=== PATIENT | female | born 1975 ===

== ENCOUNTER 2025-04-30 20:37 | Inpatient (IN) | payer MEDICAID, SELFPAY ==
--- NOTE | 2025-04-30 20:40 | EKG_ITS ---
[facility] (Formerly [facility]) Test Date: 2025-04-30 Pat Name: DUGLAS CHRISTIAN Department: Room: - Gender: Female Networking Engineer: : 1975 Requested By: ED Temporary Provider Order Number: [id number] Reading MD: ED Temporary Provider Measurements Intervals [place] Rate: 76 P: 35 IA: 129 QRS: 26 QRSD: 84 T: 52 QT: 370 QTc: 417 Interpretive Statements SINUS RHYTHM No previous ECG available for comparison /store/S0/[id number]/ecg/[id number].pdf
[2025-04-30 20:53] VITALS: BP 169/96; PULSE 79; RESP 22; TEMP 36.6; O2SAT 95
--- NOTE | 2025-04-30 21:07 | XR_ITS ---
Examination: PA chest single view TECHNIQUE: Upright PA chest single view Date and time: April 30, 2025 2109 hours INDICATIONS: Chest pain and shortness of breath beginning 2 days ago. FINDINGS: Minimal prominence left ventricle No pneumonia or pulmonary edema. Intact osseous structures IMPRESSION: No active disease
--- NOTE | 2025-04-30 21:07 | PD.EDRME ---
Rapid Medical Screening Exam RME Arrival date/time: 04/30/25 20:37 49F with history of HTN presents to ED with 2 days of CP and SOB. Patient denies URI symptoms as well as anxiety. Chief Complaint: Chest Pain Vital signs: Vital Signs Temperature 97.8 F 04/30/25 20:53 Pulse Rate 79 04/30/25 20:53 Respiratory Rate 22 H 04/30/25 20:53 Blood Pressure 169/96 H 04/30/25 20:53 Pulse Oximetry (%) 95 04/30/25 20:53 Oxygen Delivery Method Room Air 04/30/25 20:53
[2025-04-30 21:38] LABS: Basophils # (Auto) 0.1 Thou/mm3 (0.0-0.2); Basophils % (Auto) 1 % (0-2.5); Eosinophils # (Auto) 0.5 Thou/mm3 (0.0-0.5); Eosinophils % (Auto) 3 % (0-10); Hematocrit 37.1 % (36.0-46.0); Hemoglobin 12.0 g/dL (12.0-16.0); Immature Granulocytes Auto 0.06 Thou/mm3 (0.00-0.00); Lymphocytes # (Auto) 2.8 Thou/mm3 (1.0-4.8); Lymphocytes % (Auto) 17 % (10-50); Mean Corpuscular HGB Conc 32.3 g/dl (31.0-37.0); Mean Corpuscular Hemoglobin 28.4 pg (25.0-35.0); Mean Corpuscular Volume 88 fL (80-100); Monocytes # (Auto) 0.9 Thou/mm3 (0.0-0.8); Monocytes % (Auto) 5 % (0-12); Neutrophils # (Auto) 11.9 Thou/mm3 (1.8-7.7); Neutrophils % (Auto) 74 % (37-80); Nucleated Red Blood Cell # 0.00 Thou/mm3 (0.00-0.00); Nucleated Red Blood Cell % 0 /100 WBC (0); Platelet Count 291 Thou/mm3 (140-440); RDW Standard Deviation 43.1 fL (36.4-46.3); Red Blood Count 4.22 Miln/mm3 (4.00-5.20); White Blood Count 16.1 Thou/mm3 (3.6-11.0)
[2025-04-30 21:52] LABS: INR 1.0 (0.9-1.3); Partial Thromboplastin Time 26.9 Seconds (22.0-36.0); Prothrombin Time 10.8 Seconds (9.0-12.2)
[2025-04-30 22:14] LABS: Alanine Aminotransferase 10 U/L (10-49); Albumin, Serum 4.1 gm/dL (3.5-5.0); Albumin/Globulin Ratio 1.5 (1.2-2.2); Alkaline Phosphatase 91 U/L (46-116); Anion Gap 13 (7-16); Aspartate Amino Transferase 13 U/L (0-34); BUN/Creatinine Ratio 12 Ratio (12-20); Bilirubin,Total 0.2 mg/dL (0.3-1.2); Blood Urea Nitrogen 34 mg/dL (9-23); Calcium 9.0 mg/dL (8.3-10.6); Calcium (Corrected) 9.0 mg/dL (8.5-10.1); Carbon Dioxide 18.8 mMol/L (20.0-31.0); Chloride 107 mMol/L (98-107); Creatinine (Component) 2.9 mg/dL (0.6-1.3); Estimated Creatinine Clearance 24.0 mL/min (>60); Globulin 2.7 gm/dL (2.3-3.5); Glucose 115 mg/dL (74-106); Osmolality,Calculated 286 (275-295); Potassium 4.4 mMol/L (3.4-5.1); Sodium 139 mMol/L (136-145); Total Protein 6.8 gm/dL (5.7-8.2); eGFR 19 See Note
[2025-04-30 22:15] LABS: B-Type Natriuretic Peptide 63 pg/mL (0-100); Troponin I 0.077 ng/mL (0.0-0.045)
[2025-04-30 22:37] VITALS: BP 203/103; PULSE 67; RESP 18; TEMP 36.6; O2SAT 96
[2025-05-01] VITALS (14 sets, daily range): BP systolic 142–231; BP diastolic 86–145; PULSE 65–88; RESP 16–19; TEMP 36.2–36.7; O2SAT 94–100; BMI 43.2
--- NOTE | 2025-05-01 00:02 | EDNOTE_ITS ---
ED Chest Pain RME/HPI General Chief Complaint: Chest Pain Stated Complaint: CHEST PAIN Arrival date/time: 04/30/25 20:37 RME / HPI RME / HPI narrative: 04/30/25 20:37 49F with history of HTN presents to ED with 2 days of CP and SOB. Patient denies URI symptoms as well as anxiety. Dr. Coronado?s Main ED Evaluation: 49yo female presenting with left upper parasternal tightness ~24 hours that is waxing and waning. No definite exertional component. Associated shortness of breath. Denies N/V, lightheadedness, or near syncope. Cardiac risk factors: HTN (untreated) and family history. No DM or tobacco use. Unknown cholesterol status. Related Data Previous Rx's ?Medication ?Instructions ?Recorded cyclobenzaprine 10 mg tablet 10 mg PO TID #20 tabs 02/13 Allergies Allergy/AdvReac Type Severity Reaction Status Date / Time No Known Allergies Allergy Verified 04/30/25 20:38 Review of Systems Review of Systems Systems Reviewed: All systems reviewed, normal except as documented Past Medical History Social History SMOKING STATUS: Never smoker ED Exam Narrative Physical exam: GENERAL APPEARANCE: alert and oriented x 4, apprehensive, mildly obese, well- developed, well-nourished, no acute distress VITALS: All vitals were reviewed and the pulse ox is % on room air, which is normal according to my interpretation. Markedly hypertensive. HEENT: Normocephalic, atraumatic; pupils equal, round, reactive to light; EOMI; mucous membranes pink, moist; oropharynx clear NECK: Supple LUNGS: CTABL; no wheezes, no rales, no rhonchi HEART: Regular rate, regular rhythm; normal S1, S2; no murmurs ABDOMEN: non distended; normal BS; soft, no tenderness, no guarding, no re bound; no masses, no organomegaly, no hernia BACK: no CVA tenderness EXTREMITIES: atraumatic; no edema NEUROLOGIC: awake; alert and oriented x4; cranial nerves II-XII grossly intact; no focal sensory or motor deficits PSYCHIATRIC: appropriate mood and affect SKIN: warm, dry, normal color; no rashes Course Quality Measures none Orders Category Date Time Status Patient Condition Routine Admission 05/01/25 07:52 Ordered EKG (ED ONLY) *Do not use* NOW Care 04/30/25 20:40 Completed Insert IV NOW Care 04/30/25 22:41 Active Notify provider NEEDED Care 05/01/25 07:52 Active EKG (ED Only) Stat Exams 04/30/25 20:40 Draft XR chest 1V portable Stat Exams 04/30/25 21:07 Completed B-Type Natriuretic Peptide Stat Lab 04/30/25 21:30 Completed CBC Stat Lab 04/30/25 21:30 Completed Comprehensive Metabolic Panel Stat Lab 04/30/25 21:30 Completed Creatine Kinase Stat Lab 05/01/25 05:00 Completed Partial Thromboplastin Time Stat Lab 04/30/25 21:30 Completed Prothrombin Time with INR Stat Lab 04/30/25 21:30 Completed Troponin I Stat Lab 04/30/25 21:30 Completed Troponin I Stat Lab 05/01/25 00:22 Completed Troponin I Stat Lab 05/01/25 05:00 Completed Aspirin Med 04/30/25 21:07 Discontinued 325 mg PO X1 ONE Diazepam Inj [Valium Inj] Med 05/01/25 00:09 Discontinued 2.5 mg IVP X1 ONE Enalaprilat Inj [Vasotec Inj] Med 05/01/25 00:10 Discontinued 2.5 mg IVP X1 ONE Nitroglycerin Oint 2% [Nitro-paste Oint 2%] Med 05/01/25 00:09 Discontinued 1 inch TOP X1 ONE Nitroglycerin [Nitrostat 1/150] Med 04/30/25 22:41 Discontinued 0.4 mg SL Q5MIN PRN amLODIPine BESYLATE [Norvasc] Med 05/01/25 01:34 Discontinued 5 mg PO X1 ONE Code Status Routine Oth 05/01/25 07:52 Ordered Vital Signs Vital signs: Vital Signs Temperature 97.8 F 04/30/25 20:53 Pulse Rate 79 04/30/25 20:53 Respiratory Rate 22 H 04/30/25 20:53 Blood Pressure 169/96 H 04/30/25 20:53 Pulse Oximetry (%) 95 04/30/25 20:53 Oxygen Delivery Method Room Air 04/30/25 20:53 Chest Pain MDM Narrative MDM Narrative:: Scribe Attestation: 05/01/25 - I, Caroline Isreal, am scribing for and in the presence of Dr. Coronado. 49yo female presenting with left upper parasternal tightness ~24 hours that is waxing and waning. No definite exertional component. Please see PE findings. Lab markers demonstrate elevated WBC count 16.1, normal Hgb and platelet counts, significant increase in patient's creatinine to 2.9, reduced eGFR from 35 to 19. Patient placed on audio engineer. Serial troponin analysis conducted . Treated with nitrates, IV antihypertensives, and low dose benzodiazepines with gradual reduction in blood pressure. Although there was initial slight increase in troponin, it is currently downtrending. Dx: malignant HTN, acute on chronic renal insufficiency. Admit to telemetry. Patient data External records reviewed:: [facility] previous records (Per chart review, patient was seen here on 10/28/23 for muscle tension pain.) Clinical information provided by:: patient Social determinants that could affect healthcare access:: none Patient has the following chronic illnesses:: HTN How is presenting disease/condition affected by chronic disease/condition?: exacerbated by Evaluation data The following diagnostics were reviewed and interpreted by me:: lab results, radiology exam(s) and EKG tracing(s) Lab and/or radiology exams considered but not ordered:: none Interpretation Summary: EKG done at 2053, NSR, rate of 76, normal intervals, normal axis, no ST segment changes, according to my interpretation. [facility] Report Signed Patient: DUGLAS CHRISTIAN. Record#: [id number] Birthdate: 1975 Age/Sex: 49 / F Location: [facility], [place] Attending Dr: Ordering Physician: Armani Ayon PA-C Date of Service: 04/30/25 Procedure(s): XR chest 1V portable Accession Number(s): [id number] cc: Santi Torres MD; NO PRIMARY/FAMILY,PHYSICIAN; Armani Ayon PA-C~ Examination: PA chest single view TECHNIQUE: Upright PA chest single view Date and time: April 30, 2025 2109 hours INDICATIONS: Chest pain and shortness of breath beginning 2 days ago. FINDINGS: Minimal prominence left ventricle No pneumonia or pulmonary edema. Intact osseous structures IMPRESSION: No active disease Dictated By: Santi Torres MD Signed By: <Electronically signed by Santi Torres MD in OV> 04/30/25 6511 Medications / Prescriptions Medications or Prescriptions considered but not ordered:: none Medication administrations:: Medication Administration History Acetaminophen (Acetaminophen 325 Mg Tablet) 650 mg PO Q4HR PRN PRN Reason: Fever >100 or pain 1-3 Stop: 05/31/25 15:44 Last Admin: 05/01/25 15:49 Dose: 650 mg Documented By: IA Amlodipine Besylate (Amlodipine Besylate 5 Mg Tablet) 5 mg PO QDAY [facility] Stop: 06/01/25 08:59 Citric Acid/Sodium Citrate (Citric Acid/Sodium Citr 15 Ml Udc (Bicitra)) 30 ml PO BID LASHAE Stop: 05/31/25 15:14 Last Admin: 05/01/25 15:22 Dose: 30 ml Documented By: IA Hydralazine HCl (Hydralazine Inj 20 Mg/Ml Vial) 10 mg IVP Q1H PRN PRN Reason: SBP>180mmHg Hydralazine HCl (Hydralazine Hcl 25 Mg Tablet) 25 mg PO BID [facility] Stop: 05/31/25 16:09 Last Admin: 05/01/25 16:17 Dose: 25 mg Documented By: IA Pharmacy Consult (Pharmacy Renal Dose Adjustment 1 Ea) 1 each XX PRN PRN PRN Reason: CONSULT Stop: 05/31/25 12:39 Discontinued Medications Amlodipine Besylate (Amlodipine Besylate 5 Mg Tablet) 5 mg PO X1 ONE Stop: 05/01/25 01:35 Last Admin: 05/01/25 01:51 Dose: 5 mg Documented By: DINA Aspirin (Aspirin 325 Mg Tablet) 325 mg PO X1 ONE Stop: 04/30/25 21:08 Last Admin: 04/30/25 21:24 Dose: 325 mg Documented By: BILL Diazepam (Diazepam Inj 5 Mg/Ml Vial 2 Ml) 2.5 mg IVP X1 ONE Stop: 05/01/25 00:10 Last Admin: 05/01/25 00:59 Dose: 2.5 mg Documented By: DINA Enalaprilat (Enalaprilat Inj 1.25 Mg/Ml Vial) 2.5 mg IVP X1 ONE Stop: 05/01/25 00:11 Last Admin: 05/01/25 01:06 Dose: 2.5 mg Documented By: DINA Hydralazine HCl (Hydralazine Hcl 25 Mg Tablet) 25 mg PO BID LASHAE Stop: 05/31/25 20:59 Acetaminophen (Ofirmev Inj) 1,000 mg in 100 mls @ 250 mls/hr IV X1 ONE Stop: 05/01/25 10:10 Last Admin: 05/01/25 11:04 Dose: 250 mls/hr Documented By: IA Nitroglycerin (Nitroglycerin 0.4 Mg Subl Btl #25) 0.4 mg SL Q5MIN PRN PRN Reason: CHEST PAIN Last Admin: 05/01/25 00:38 Dose: 0.4 mg Documented By: DINA Nitroglycerin (Nitroglycerin Oint 2% 1 Inch Packet) 1 inch TOP X1 ONE Stop: 05/01/25 00:10 Last Admin: 05/01/25 01:02 Dose: 1 inch Documented By: DINA see above Consultations Consultation(s) initiated? (list below): Yes Consultation #1 (Physician, Specialty, Details): Discussed case with the resident physician, attending Dr. Astudillo from Hospitalist service regarding admission. Discussed patients ED course, exam findings, labs, and radiology results. The Hospitalist agrees to accept the patient for admission. Time: 06:01 Diagnosis Chest Pain Differential Diagnosis: atypical chest pain, st elevation myocardial infarction, costochondritis, chest pain and other (NSTEMI, ACS) Most likely diagnosis given after review of the tests above:: see clinical impression below Admission Indicated Admission indicated?: indicated Admission Request Was there a request for admission?: Yes Admission Attestation Admission request attestation: Discussed case with [] from Hospitalist service regarding admission. Discussed patients ED course, exam findings, labs, and radiology results. The Hospitalist [agrees,declines] to accept the patient for admission. Disposition Plan Disposition Plan: Admit Critical Care Time Critical Care Time Critical Care Time: Yes Total Critical Care Time (min.): 45 Attestation: The high probability of sudden, clinically significant deterioration in the patient?s condition required the highest level of my preparedness to intervene urgently. The services I provided to this patient were to treat and/or prevent clinically significant deterioration. Services included the following: chart data review, reviewing nursing notes and/or old charts, documentation time, data management consultant collaboration regarding findings and treatment options, medication orders and management, direct patient care, vital sign assessments and ordering, interpreting and reviewing diagnostic studies and lab tests. Aggregate critical care time includes only time during which I was engaged in work directly related to the patient?s care, as described above, whether at bedside or elsewhere in the Emergency Department. It did not include time spent performing other reported procedures or the services of residents, students, nurses or physician assistants. Discharge Plan Plan Patient Disposition: Admit Acute Care w/in Hospital Problem List Clinical Impression: Malignant hypertension, Acute on chronic renal insufficiency
[2025-05-01] MEDS: NITROGLYCERIN 0.4 MG SUBL BTL #25 SL (00:38)
[2025-05-01 00:51] LABS: Troponin I 0.081 ng/mL (0.0-0.045)
[2025-05-01] MEDS: DIAZEPAM INJ 5 MG/ML VIAL 2 ML 2.5 MG IVP (00:59)
[2025-05-01] MEDS: NITROGLYCERIN OINT 2% 1 INCH PACKET TOP (01:02)
[2025-05-01] MEDS: ENALAPRILAT INJ 1.25 MG/ML VIAL 2.5 MG IVP (01:06)
[2025-05-01 05:37] LABS: Troponin I 0.065 ng/mL (0.0-0.045)
--- NOTE | 2025-05-01 07:15 | PC.NURSE ---
in to assess pt. pt resting quietly at this time. denies chest pain. family at bedside. call light placed within reach. plan to admit.
--- NOTE | 2025-05-01 07:23 | PC.NURSE ---
Per provider B/p to be addressed by hospitalist
--- NOTE | 2025-05-01 10:54 | XR_ITS ---
Examination: Retroperitoneal ultrasound, complete Technique: Multiple high resolution grayscale images of the retroperitoneum obtained, including kidneys and bladder. Exam date and time:May 01, 2025, 1235 hours INDICATIONS: Acute renal insufficiency on left examination this week FINDINGS: Right kidney 9.1 cm renal cortex 1.3 cm Left kidney 8.4 cm renal cortex 1.8 cm Mild renal parenchymal scar formation. No hydronephrosis No bladder mass or bladder calculi, bladder prevoid volume 202 cc postvoid volume 0 cc IMPRESSION: Small kidneys with bilateral renal cortical thinning. Mild bilateral renal scar formation
[2025-05-01] MEDS: ACETAMINOPHEN IVPB 1,000 MG/100 ML VIAL 250 MG IV (11:04)
[2025-05-01 13:24] LABS: Creatine Kinase 61 U/L (34-171)
--- NOTE | 2025-05-01 14:23 | ESCONSULT_ITS ---
<Statement entered by Estefanía Bell MD - 05/02/25 18:47> I personally evaluated this patient examined who clearly has atypical chest pain known history of hypertension CKD who has had right-sided chest pain lasted few seconds nonradiating clearly reproducible with chest wall tenderness appears to be costochondritis she is feeling a lot better now no evidence of myocardial infarction enzymes are negative patient can be discharged home with further evaluation as an outpatient. Evaluated patient with resident physician PGY 2 agree with the treatment plan recommendation all essential components of the consultation report is reviewed personally by me HPI Data of Consult Requesting Physician: Anders Galindo DO Admitting Provider: Anders Galindo DO Attending Provider: Anders Galindo DO Primary Care Provider: Physician No Primary/Family Consult Narrative History of present illness: This is a 49-year-old female with a history of poorly controlled hypertension and chronic kidney disease presented to the ED with acute chest pain lasting for one day. The pain was centrally located, non-radiating, and worsened with deep breaths. The patient had no prior similar episodes, denied physical activity- related pain, and reported non-compliance with hypertension medications and lack of follow-up for CKD. On presentation, her blood pressure was initially 169/96 but later spiked to 230/145, and lab work revealed elevated troponin and serum creatinine levels, indicating possible ANGEL LUIS. The troponin levels trended from 0.077 to 0.081, and finally 0.065, without any ischemic changes on the EKG or significant findings on chest imaging. The patient was diagnosed with hypertensive emergency and ANGEL LUIS on CKD, likely exacerbated by poorly managed hypertension and lack of nephrology follow-up. Her renal ultrasound revealed bilateral cortical thinning without obstruction. For management, she was started on hydralazine and amlodipine for blood pressure control and given IV hydralazine for SBP >180 mmHg. Strict fluid monitoring and nephrology consultation were initiated, and the patient was counseled on the importance of outpatient follow-up for both her CKD and hypertension. Leukocytosis (WBC 16.1) was noted but there were no signs of infection, and daily CBC monitoring was planned. The patient was also given nitroglycerin paste and enalaprilat IV during her ED course for chest pain and blood pressure management. On evaluation, she reports ported nonexertional chest pain, not related to activities, appears to be triggered by deep inhalation, rated at mild intensity. Denied palpitations, lightheadedness, dizziness, syncope or presyncope. On exam, she reported reproducible chest pain that appears epigastric, but more on the right chest. At the time of evaluation, she denied shortness of breath. Given her presentation as described above, she has atypical chest pain that is reproducible on exam, with low suspicions for acute coronary syndrome at this time. cc:: cc: Anders Galindo, Review of Systems Review of Systems Systems Reviewed: All systems reviewed, normal except as documented Exam Vital Signs Temp Pulse Resp BP Pulse Ox O2 Del Method 97.9 F 67 18 183/94 H 96 Room Air 05/01/25 12:00 05/01/25 12:00 05/01/25 12:00 05/01/25 12:00 05/01/25 12:05/01/25 12:00 Narrative Exam GENERAL * Obese female, well-nourished, on room air, NAD HEENT * NCAT.?GREGORY. Oral mucosa is moist. Patent Nares NECK * Supple, nontender, no JVD. CHEST * RRR, no m/g/r * CTAB, no w/r/r, symmetrical expansion. ABDOMEN * Soft, flat, nontender. No guarding/rebound tenderness/masses. * Bowel sounds presents EXTREMITIES * No edema/cyanosis.? SKIN * Warm and dry, no jaundice/rashes. NEUROMUSCULAR * No lumbar or midline, no CVA, no paraspinal muscle spasm or tenderness. * Moves all 4 extremities well, with full ROM and good CSM. * KRISHNA x4, CN II-XII grossly intact. * No focal neurologic deficits. PSYCHIATRY * Normal mood and affect, cooperative, no SI or HI or hallucinations. Results Labs 04/30/25 21:30 04/30/25 21:30 Labs: Short CBC 04/30/25 Range/Units 21:30 WBC 16.1 H (3.6-11.0) Thou/mm3 Hgb 12.0 (12.0-16.0) g/dL Hct 37.1 (36.0-46.0) % Plt Count 291 (140-440) Thou/mm3 BMP 04/30/25 21:30 Sodium 139 Potassium 4.4 Chloride 107 Carbon Dioxide 18.8 L BUN 34 H Creatinine 2.9 H Glucose 115 H Calcium 9.0 Cardiac Enzymes 04/30/25 05/01/25 05/01/25 Range/Units 21:30 00:22 05:00 Total Creatine Kinase 61 (34-171) U/L Troponin I 0.077 H* 0.081 H* 0.065 H* (0.0-0.045) ng/mL Liver Function 04/30/25 Range/Units 21:30 Total Bilirubin 0.2 L (0.3-1.2) mg/dL AST 13 (0-34) U/L ALT 10 (10-49) U/L Alkaline Phosphatase 91 (46-116) U/L Albumin 4.1 (3.5-5.0) gm/dL Quality Measures Quality Measures none Medications Home Medications and Allergies Allergies Allergy/AdvReac Type Severity Reaction Status Date / Time No Known Allergies Allergy Verified 04/30/25 20:38 Visit Medications Amlodipine Besylate (Amlodipine Besylate 5 Mg Tablet) 5 mg PO QDAY LASHAE Stop: 06/01/25 08:59 Nitroglycerin (Nitroglycerin 0.4 Mg Subl Btl #25) 0.4 mg SL Q5MIN PRN PRN Reason: CHEST PAIN Last Admin: 05/01/25 00:38 Dose: 0.4 mg Pharmacy Consult (Pharmacy Renal Dose Adjustment 1 Ea) 1 each XX PRN PRN PRN Reason: CONSULT Stop: 05/31/25 12:39 Discontinued Medications Amlodipine Besylate (Amlodipine Besylate 5 Mg Tablet) 5 mg PO X1 ONE Stop: 05/01/25 01:35 Last Admin: 05/01/25 01:51 Dose: 5 mg Aspirin (Aspirin 325 Mg Tablet) 325 mg PO X1 ONE Stop: 04/30/25 21:08 Last Admin: 04/30/25 21:24 Dose: 325 mg Diazepam (Diazepam Inj 5 Mg/Ml Vial 2 Ml) 2.5 mg IVP X1 ONE Stop: 05/01/25 00:10 Last Admin: 05/01/25 00:59 Dose: 2.5 mg Enalaprilat (Enalaprilat Inj 1.25 Mg/Ml Vial) 2.5 mg IVP X1 ONE Stop: 05/01/25 00:11 Last Admin: 05/01/25 01:06 Dose: 2.5 mg Acetaminophen (Ofirmev Inj) 1,000 mg in 100 mls @ 250 mls/hr IV X1 ONE Stop: 05/01/25 10:10 Last Admin: 05/01/25 11:04 Dose: 250 mls/hr Nitroglycerin (Nitroglycerin Oint 2% 1 Inch Packet) 1 inch TOP X1 ONE Stop: 05/01/25 00:10 Last Admin: 05/01/25 01:02 Dose: 1 inch Assessment & Plan Plan This is a 49-year-old female with a history of poorly controlled hypertension and chronic kidney disease presented to the ED with acute chest pain lasting for one day. Workup revealed hypertension and labs revealed elevated troponin and serum creatinine levels, indicating possible ANGEL LUIS. NSTEMI likely type II Hypertensive emergency ANGEL LUIS on CKD She has known history of poorly controlled hypertension in setting of chronic kidney disease. Admission BP 116/96, HR 79 with endorgan damage i.e. ANGEL LUIS on CKD and elevated troponin peaked at 0.081. Renal ultrasound revealed bladder atrophic kidneys consistent with CKD. CXR showed no active disease. EKG sinus rhythm without acute ST changes. Additionally, she complained of chest pain on admission which appears to be epigastric, but more so involving the right side of the chest, reducible on exam, likely costochondritis. Overall, her presentation described above is consistent with atypical chest pain, likely musculoskeletal. As such, no indication for cardiovascular intervention. Will follow-up in office for possibly additional workup if symptoms persist. For now, recommended treating hypertension and ANGEL LUIS. Case was discussed with attending physician, Dr. Bell. Gil Church, PGY II This document was transcribed using voice recognition technology. Minor inaccuracies may be present.
--- NOTE | 2025-05-01 15:02 | PD.RESHP ---
Documentation for date of: 05/01/25 HPI History of Present Illness Chief complaint: Chest pain for one day History of present illness: HPI: A 49-year-old female patient with past medical history of hypertension poorly controlled, chronic kidney disease with no follow-up, presented to the ED due to acute onset of chest pain for 1 day. Reported that the chest pain centrally located with no radiation. Mentions that it increases with deep breath. When she asks to localize the pain she pointed to the sternal area midpoint. She mentions that the pain is not constant however it changes with time. Denied any relation with physical activity. She denied any orthopnea, lower extremity swelling, palpitation, dizziness or fever. Denied any similar conditions in the past. On questioning it appeared that the patient was not compliant with her meds as she mentions she has never taken any medication for her hypertension. She mentions that she is aware of her chronic kidney disease however she has never followed up with a animal husbandry teacher. Home medications: None ED course: At the ED patient was found to have blood pressure of 169/96 however it increased to 230/145, pulse rate was 79, respiratory rate of 22, WBC was 16.1, however no fever or chills, her CMP showed carbon oxide of 18.8, BUN 34, serum creatinine 2.9 last serum creatinine was 1.8 and 2023. Patient was given nitroglycerin paste and was given enalaprilat IV by the ED team. PMH:as above Allergies: NKDA Review of Systems Review of Systems Systems Reviewed: All systems reviewed, normal except as documented Exam Vital Signs Temp Pulse Resp BP Pulse Ox O2 Del Method 97.9 F 67 18 183/94 H 96 Room Air 05/01/25 12:05/01/25 12:05/01/25 12:05/01/25 12:05/01/25 12:05/01/25 12:00 Narrative Exam GEN: AOx3, able to speak full sentences HEENT: NC/AC, PERRLA, oral mucosa moist, neck supple CVS: RRR, S1-S2 present, no murmurs appreciated RESP: CTAB GI: soft,non distended, non tender, NBS MSK: able to move all 4 limbs, trace lower extremity edema SKIN: warm and dry MOLD CARPENTER: CN II-XII and Sensation grossly intact. Results: Labs 04/30/25 21:30 04/30/25 21:30 Labs: Short CBC 04/30/25 Range/Units 21:30 WBC 16.1 H (3.6-11.0) Thou/mm3 Hgb 12.0 (12.0-16.0) g/dL Hct 37.1 (36.0-46.0) % Plt Count 291 (140-440) Thou/mm3 BMP 04/30/25 21:30 Sodium 139 Potassium 4.4 Chloride 107 Carbon Dioxide 18.8 L BUN 34 H Creatinine 2.9 H Glucose 115 H Calcium 9.0 Cardiac Enzymes 04/30/25 05/01/25 05/01/25 Range/Units 21:30 00:22 05:00 Total Creatine Kinase 61 (34-171) U/L Troponin I 0.077 H* 0.081 H* 0.065 H* (0.0-0.045) ng/mL Liver Function 04/30/25 Range/Units 21:30 Total Bilirubin 0.2 L (0.3-1.2) mg/dL AST 13 (0-34) U/L ALT 10 (10-49) U/L Alkaline Phosphatase 91 (46-116) U/L Albumin 4.1 (3.5-5.0) gm/dL Quality Measures Quality Measures none Medications Home Medications and Allergies Allergies Allergy/AdvReac Type Severity Reaction Status Date / Time No Known Allergies Allergy Verified 04/30/25 20:38 Visit Medications Amlodipine Besylate (Amlodipine Besylate 5 Mg Tablet) 5 mg PO QDAY LASHAE Stop: 06/01/25 08:59 Citric Acid/Sodium Citrate (Citric Acid/Sodium Citr 15 Ml Udc (Bicitra)) 30 ml PO BID LASHAE Stop: 05/31/25 15:14 Nitroglycerin (Nitroglycerin 0.4 Mg Subl Btl #25) 0.4 mg SL Q5MIN PRN PRN Reason: CHEST PAIN Last Admin: 05/01/25 00:38 Dose: 0.4 mg Pharmacy Consult (Pharmacy Renal Dose Adjustment 1 Ea) 1 each XX PRN PRN PRN Reason: CONSULT Stop: 05/31/25 12:39 Discontinued Medications Amlodipine Besylate (Amlodipine Besylate 5 Mg Tablet) 5 mg PO X1 ONE Stop: 05/01/25 01:35 Last Admin: 05/01/25 01:51 Dose: 5 mg Aspirin (Aspirin 325 Mg Tablet) 325 mg PO X1 ONE Stop: 04/30/25 21:08 Last Admin: 04/30/25 21:24 Dose: 325 mg Diazepam (Diazepam Inj 5 Mg/Ml Vial 2 Ml) 2.5 mg IVP X1 ONE Stop: 05/01/25 00:10 Last Admin: 05/01/25 00:59 Dose: 2.5 mg Enalaprilat (Enalaprilat Inj 1.25 Mg/Ml Vial) 2.5 mg IVP X1 ONE Stop: 05/01/25 00:11 Last Admin: 05/01/25 01:06 Dose: 2.5 mg Acetaminophen (Ofirmev Inj) 1,000 mg in 100 mls @ 250 mls/hr IV X1 ONE Stop: 05/01/25 10:10 Last Admin: 05/01/25 11:04 Dose: 250 mls/hr Nitroglycerin (Nitroglycerin Oint 2% 1 Inch Packet) 1 inch TOP X1 ONE Stop: 05/01/25 00:10 Last Admin: 05/01/25 01:02 Dose: 1 inch Assessment & Plan Plan Summary: A 49-year-old female patient with past medical history of hypertension poorly controlled, chronic kidney disease with no follow-up, presented to the ED due to acute onset of chest pain for 1 day. Reported that the chest pain centrally located with no radiation. Patient was found to have elevated troponins and elevated serum creatinine admitted for non-STEMI workup and ANGEL LUIS treatment. #Non-STEMI type I versus type II Patient presented with centrally located chest pain, even that the patient pain was reproducible, we noticed that her serum troponin was elevated went up from 0.077, to 0.081, started to downtrend to 0.065 EKG did not show any ischemic changes. Chest x-ray was negative for any pneumothorax or pulmonary cause of chest pain. Patient denied any symptoms physical activity. 05/[address] Bell was consulted, recommended no cardiac intervention at this time. As the pain is reducible. Patient can be discharged from his standpoint. Plan ? Stop trending troponin ? Consult cardiology, recommendations appreciated ?Strict ins and outs #Hypertension emergency #ANGEL LUIS on CKD Patient is known case of hypertension however has not taken any blood pressure medications has not following up with her PCP. She is also known case of CKD however she does not see a animal husbandry teacher. On presentation her max blood pressure was 230/145 Renal ultrasound was performed which showed bilateral thinning of the cortical wall. No obstructions. Plan ? Urine electrolyte, serum creatinine kinase ? Start the patient on hydralazine p.o. 25 mg twice daily ? Start the patient amlodipine 5 mg p.o. daily ? Strict in and out ? Nephrology consultation to Dr. Bose was sent, pending recommendations ? Hydralazine 10 mg IV every hour for SBP more than 180 mmHg, max of 3 doses. ? Patient counseling regarding her ANGEL LUIS and CKD and the need to follow-up with animal husbandry teacher in outpatient #Leukocytosis WBC found to be 16.1, no signs of infection, no fever, no focal elevation. Plan ? Continue to monitor CBC daily Hospital Maintenance: FEN: Renal diet DVT ppx: Heparin subcu GI ppx: Protonix IV lines: PIV Preston: None Code status: Full code Dispo: Telemetry - Patient's plan and care discussed with my attending, Dr. Josie Garcias MD Internal Medicine PGY-3 Attending Provider Attestation/Addendum I have discussed and was present for the essential components of the history, physical examination, diagnosis, and treatment plan with the resident. I agree with the patient's care as documented by the resident and amended herein by me. Julien Galindo DO. Although this document has been carefully reviewed, there may still be some phonetic and other typographical errors. These errors are purely grammatical due to imperfections in the software program and should not be construed in any way to compromise the substance of the patient's medical care during this visit.
[2025-05-01] MEDS: CITRIC ACID/SODIUM CITR 15 ML UDC (BICITRA) 30 ML PO (15:22)
[2025-05-01] MEDS: ACETAMINOPHEN 325 MG TABLET 650 MG PO (15:49)
[2025-05-01 19:35] LABS: Phosphorous 4.3 mg/dL (2.4-5.1)
[2025-05-02] VITALS (14 sets, daily range): BP systolic 141–183; BP diastolic 79–103; PULSE 66–113; RESP 17–20; TEMP 36.1–36.7; O2SAT 95–99
[2025-05-02 03:19] LABS: Potassium,Urine Random 18 mMol/L (12-62)
[2025-05-02 03:26] LABS: Creatinine,Random Urine 36 mg/dL (30-125); Protein Total, Random Urine 92 mg/dL (1-14); Sodium,Urine Random 94.0 mMol/L (20.0-110.0)
[2025-05-02] MEDS: hydrALAZINE INJ 20 MG/ML VIAL 10 MG IVP (03:38)
[2025-05-02 06:17] LABS: Basophils # (Auto) 0.1 Thou/mm3 (0.0-0.2); Basophils % (Auto) 1 % (0-2.5); Eosinophils # (Auto) 0.4 Thou/mm3 (0.0-0.5); Eosinophils % (Auto) 3 % (0-10); Hematocrit 37.1 % (36.0-46.0); Hemoglobin 12.1 g/dL (12.0-16.0); Immature Granulocytes Auto 0.05 Thou/mm3 (0.00-0.00); Lymphocytes # (Auto) 1.9 Thou/mm3 (1.0-4.8); Lymphocytes % (Auto) 14 % (10-50); Mean Corpuscular HGB Conc 32.6 g/dl (31.0-37.0); Mean Corpuscular Hemoglobin 28.6 pg (25.0-35.0); Mean Corpuscular Volume 88 fL (80-100); Monocytes # (Auto) 0.7 Thou/mm3 (0.0-0.8); Monocytes % (Auto) 5 % (0-12); Neutrophils # (Auto) 10.7 Thou/mm3 (1.8-7.7); Neutrophils % (Auto) 77 % (37-80); Nucleated Red Blood Cell # 0.00 Thou/mm3 (0.00-0.00); Nucleated Red Blood Cell % 0 /100 WBC (0); Platelet Count 267 Thou/mm3 (140-440); RDW Standard Deviation 42.5 fL (36.4-46.3); Red Blood Count 4.23 Miln/mm3 (4.00-5.20); White Blood Count 13.8 Thou/mm3 (3.6-11.0)
[2025-05-02 06:43] LABS: Parathyroid Hormone Intact 177.4 pg/ml (18.5-88.0)
[2025-05-02 07:00] LABS: Alanine Aminotransferase 9 U/L (10-49); Albumin, Serum 4.0 gm/dL (3.5-5.0); Albumin/Globulin Ratio 1.6 (1.2-2.2); Alkaline Phosphatase 89 U/L (46-116); Anion Gap 13 (7-16); Aspartate Amino Transferase 13 U/L (0-34); BUN/Creatinine Ratio 13 Ratio (12-20); Bilirubin,Total 0.4 mg/dL (0.3-1.2); Blood Urea Nitrogen 32 mg/dL (9-23); Calcium 9.0 mg/dL (8.3-10.6); Calcium (Corrected) 9.0 mg/dL (8.5-10.1); Carbon Dioxide 21.1 mMol/L (20.0-31.0); Chloride 104 mMol/L (98-107); Creatinine (Component) 2.4 mg/dL (0.6-1.3); Estimated Creatinine Clearance 28.4 mL/min (>60); Globulin 2.5 gm/dL (2.3-3.5); Glucose 92 mg/dL (74-106); Magnesium 1.8 mg/dL (1.6-2.6); Osmolality,Calculated 282 (275-295); Phosphorous 4.4 mg/dL (2.4-5.1); Potassium 4.7 mMol/L (3.4-5.1); Sodium 138 mMol/L (136-145); Total Protein 6.5 gm/dL (5.7-8.2); Uric Acid 9.1 mg/dL (3.1-7.8); eGFR 24 See Note
--- NOTE | 2025-05-02 08:30 | ESCONSULT_ITS ---
[facility] Data of Consult Consult date: 05/02/25 Requesting Physician: Anders Galindo DO Admitting Provider: Anders Galindo DO Attending Provider: Anders Galindo DO Primary Care Provider: Physician No Primary/Family Consult Narrative Reason for consult: ANGEL LUIS History of present illness: Ms Salas is a 49 yo woman with PMH of poorly controlled HTN (not taking medications), CKD (not followed by a sr. director) who presented to the ED with acute onset non radiating chest pain in the center of the chest, worse with inspiration, not associated with exertion, no orthopnea, no LE edema, no palpitations. Pt reports having increased stress recently, since she has recently from her . She does not have any children. She states that she had been diagnosed with HTN about 1-2 years ago but was not taking any medications. She states that about 2 days prior to coming to the hospital she had eaten some licorice candies. She states that she occationally takes APAP for pain, but denies chronic NSAID use. ED course: At the ED patient was found to have blood pressure of 169/96 however it increased to 230/145, pulse rate was 79, respiratory rate of 22, WBC was 16.1, however no fever or chills, her CMP showed carbon oxide of 18.8, BUN 34, serum creatinine 2.9 last serum creatinine was 1.8 and 2023. Patient was given nitroglycerin paste and was given enalaprilat IV by the ED team. 05/01/2025: Nephrology consulted, for ANGEL LUIS on CKD, HTN emergency with SBP to 200s. 05/02/2025 Patient seen and examined at bedside. reaffirms that she was not taking any antihypertensives at home, intermittent APAP use, no nsaids, reports no hx of DM. Lungs clear to auscultation bilaterally. trace edema bilaterally in lower extremities. cc:: cc: Anders Galindo DO Review of Systems Review of Systems Narrative Review of Systems: no fevers, chills, no abdominal pain, no dysuria, no shortness of breath, no nausea, no vomiting. endorses chest pain (now resolved) Constitutional Constitutional: Reports as per HPI Past Medical History Past Medical History CARDIAC: Positive Hypertension GASTROINTESTINAL: Positive Obesity Exam Vital Signs Temp Pulse Resp BP Pulse Ox O2 Del Method 97.9 F 85 18 146/94 H 98 Room Air 05/02/25 08:00 05/02/25 08:00 05/02/25 08:00 05/02/25 08:00 05/02/25 08:00 05/02/25 08:00 Narrative Exam GENERAL: no acute distress, AAO x3, comfortably laying in bed HEENT: Head AT/ NC. Mucous membranes moist. PERRL. NECK: Supple, no lymphadenopathy, no carotid bruits. CARDIOVASCULAR: RRR. Normal S1/S2, No m/r/g. No pitting edema of bilateral LEs. RESPIRATORY: CTAB. No wheezing, rhonchi, crackles. GASTROINTESTINAL: Abdomen soft, non tender no palpable masses. Bowel sounds present MUSCULOSKELETAL:? No cyanosis or edema, no visible joint swelling. NEUROLOGICAL: CN II-XII grossly intact. No focal deficits. Sensation intact, symmetric. PSYCHIATRIC: Awake and alert, not agitated, normal mood and affect. SKIN: raised pink and skin colored plaques on extensor surfaces of elbows and behind ears, and on near scalp, no jaundice, normal turgor. Results Labs 05/02/25 04:10 05/02/25 04:10 Labs: Short CBC 05/02/25 Range/Units 04:10 WBC 13.8 H (3.6-11.0) Thou/mm3 Hgb 12.1 (12.0-16.0) g/dL Hct 37.1 (36.0-46.0) % Plt Count 267 (140-440) Thou/mm3 BMP 05/02/25 04:10 Sodium 138 Potassium 4.7 Chloride 104 Carbon Dioxide 21.1 BUN 32 H Creatinine 2.4 H D Glucose 92 Calcium 9.0 Cardiac Enzymes 05/01/25 Range/Units 05:00 Total Creatine Kinase 61 (34-171) U/L Liver Function 05/02/25 Range/Units 04:10 Total Bilirubin 0.4 (0.3-1.2) mg/dL AST 13 (0-34) U/L ALT 9 L (10-49) U/L Alkaline Phosphatase 89 (46-116) U/L Albumin 4.0 (3.5-5.0) gm/dL Quality Measures Quality Measures VTE prophylaxis Medications Home Medications and Allergies Allergies Allergy/AdvReac Type Severity Reaction Status Date / Time No Known Allergies Allergy Verified 04/30/25 20:38 Visit Medications Acetaminophen (Acetaminophen 325 Mg Tablet) 650 mg PO Q4HR PRN PRN Reason: Fever >100 or pain 1-3 Stop: 05/31/25 15:44 Last Admin: 05/01/25 15:49 Dose: 650 mg Amlodipine Besylate (Amlodipine Besylate 5 Mg Tablet) 5 mg PO QDAY [facility] Stop: 06/01/25 08:59 Citric Acid/Sodium Citrate (Citric Acid/Sodium Citr 15 Ml Udc (Bicitra)) 30 ml PO BID LASHAE Stop: 05/31/25 15:14 Last Admin: 05/01/25 15:22 Dose: 30 ml Hydralazine HCl (Hydralazine Inj 20 Mg/Ml Vial) 10 mg IVP Q1H PRN PRN Reason: SBP>180mmHg Last Admin: 05/02/25 03:38 Dose: 10 mg Hydralazine HCl (Hydralazine Hcl 25 Mg Tablet) 25 mg PO BID [facility] Stop: 05/31/25 16:09 Last Admin: 05/01/25 16:17 Dose: 25 mg Pharmacy Consult (Pharmacy Renal Dose Adjustment 1 Ea) 1 each XX PRN PRN PRN Reason: CONSULT Stop: 05/31/25 12:39 Discontinued Medications Amlodipine Besylate (Amlodipine Besylate 5 Mg Tablet) 5 mg PO X1 ONE Stop: 05/01/25 01:35 Last Admin: 05/01/25 01:51 Dose: 5 mg Aspirin (Aspirin 325 Mg Tablet) 325 mg PO X1 ONE Stop: 04/30/25 21:08 Last Admin: 04/30/25 21:24 Dose: 325 mg Diazepam (Diazepam Inj 5 Mg/Ml Vial 2 Ml) 2.5 mg IVP X1 ONE Stop: 05/01/25 00:10 Last Admin: 05/01/25 00:59 Dose: 2.5 mg Enalaprilat (Enalaprilat Inj 1.25 Mg/Ml Vial) 2.5 mg IVP X1 ONE Stop: 05/01/25 00:11 Last Admin: 05/01/25 01:06 Dose: 2.5 mg Hydralazine HCl (Hydralazine Hcl 25 Mg Tablet) 25 mg PO BID [facility] Stop: 05/31/25 20:59 Acetaminophen (Ofirmev Inj) 1,000 mg in 100 mls @ 250 mls/hr IV X1 ONE Stop: 05/01/25 10:10 Last Admin: 05/01/25 11:04 Dose: 250 mls/hr Nitroglycerin (Nitroglycerin 0.4 Mg Subl Btl #25) 0.4 mg SL Q5MIN PRN PRN Reason: CHEST PAIN Last Admin: 05/01/25 00:38 Dose: 0.4 mg Nitroglycerin (Nitroglycerin Oint 2% 1 Inch Packet) 1 inch TOP X1 ONE Stop: 05/01/25 00:10 Last Admin: 05/01/25 01:02 Dose: 1 inch Assessment & Plan Attending Provider Attestation/Addendum Ms. Salas is a year-old female patient with past medical history of hypertension poorly controlled, chronic kidney disease with no follow-up, presented to the ED due to acute onset of chest pain for 1 day. Reported that the chest pain centrally located with no radiation. Patient was found to have elevated troponins and elevated serum creatinine admitted for non-STEMI workup and ANGEL LUIS treatment. Nephrology consulted for ANGEL LUIS on CKD. #ANGEL LUIS on CKD Stage 4 #query 2/2 uncontrolled HTN - renal US with bilatteral cortical thinning on 05/02 Cr 2.4 from 2.9 BUN 32 from 34, K wnl , likely prerenal Plan - strict i and o - encourage PO intake - avoid nephrotoxic agents - better control of BP (see #htn emergency below) - reccomend f/u with [facility] - follow up with sr. director outatient. #HTN emergency #HTN- poorly controlled pt reports not taking antihypertensives at home pt reports increased stress pt reports eating licorice candies during the past few days, - advise pt to avoid licorice foods and candies. (see this publication about licorice and HTN association doi: 10.3390/pg41700225. PMID: 18671350; PMCID: [id number].) - start hydralazine 25 TID - start amlodipine 10 mg qd - rec start spirinolactone 25 BID #NSTEMI type 1 vs type 2 vs chostochondritis - CARDS consulted, rec outpatient f/u #Leukocytosis - downtrending #query DM - a1c pending Management as per primary team Plan discussed with nephrology attending Dr. Lidya Roca MD Internal Medicine PGY-1 Patient seen and examined with resident physician Dr. Roca. Note reviewed, agree with findings and recommendations. Patient presented with uncontrolled hypertension, ANGEL LUIS. Admits to eating licorice prior to presentation. Spoke to primary team-add Aldactone and DC amlodipine. Thank you Julien for allowing me to participate in the care of Ms. Salas
[2025-05-02] MEDS: CITRIC ACID/SODIUM CITR 15 ML UDC (BICITRA) 30 ML PO ×2 (08:45→20:23)
--- NOTE | 2025-05-02 11:15 | PC.SS ---
Ivon Salas is a 49-year-old female admitted to Med Surg for SOB. SS conducted bedside contact with the patient to complete initial assessment and to discuss discharge planning. Role and reason explained. Patient confirmed demographic information. Patient identifies Father Austyn Salas [phone] as her surrogate decision maker. Pt states she is able to complete all ADL?s independently. No need for any source of DME. Pts PCP is Dr. Justin. [facility] choice [facility]. Discharge options discussed and the pt wishes to return home.? Family will provide transportation upon DC. No further intervention required at this time, health and social care teacher would be available to address any further concerns. DC Plan: Home Contact: Father Address: Confirmed on face sheet PCP: Nhan
[2025-05-02 13:05] LABS: Glucose Estimated Average 117 mg/dL (80-131); Hemoglobin A1C 5.7 % Hgb (4.8-6.0)
[2025-05-02] MEDS: SPIRONOLACTONE 25 MG TABLET PO ×2 (13:11→20:23)
--- NOTE | 2025-05-02 14:39 | ESPR_ITS ---
Documentation for date of: 05/02/25 Subjective Subjective Interval history: Patient was seen and examined at bedside. Reported improvement of her sx, no chest pain or SOB, still has some lower limb edema. Her urine lyte resulted and her FeNa came as 10% meaning intrensic kidney failure. Nephrology team consulted recommened to start spironolactone. her wbc downtrending to 13 from 16, S.Cr improving from 2.9 to 2.4. A1c came back at 5.8 and Lipid panel ordered for morning labs. Exam Vital Signs Temp Pulse Resp BP Pulse Ox O2 Del Method 97.3 F 90 18 159/94 H 98 Room Air 05/02/25 12:00 05/02/25 13:11 05/02/25 12:00 05/02/25 13:11 05/02/25 12:00 05/02/25 12:00 Narrative Exam GEN: AOx3, able to speak full sentences HEENT: NC/AC, PERRLA, oral mucosa moist, neck supple CVS: RRR, S1-S2 present, no murmurs appreciated RESP: CTAB GI: soft,non distended, non tender, NBS MSK: able to move all 4 limbs, still has trace lower extremity edema SKIN: warm and dry NATIONAL EXPANSION RECRUITER: CN II-XII and Sensation grossly intact. Objective Labs 05/02/25 04:10 05/02/25 04:10 Labs: Laboratory Results - last 24 hr 05/01/25 05/02/25 05/02/25 18:52 02:30 04:10 WBC 13.8 H RBC 4.23 Hgb 12.1 Hct 37.1 MCV 88 MCH 28.6 MCHC 32.6 RDW Std Deviation 42.5 Plt Count 267 Neut % (Auto) 77 Lymph % (Auto) 14 Kern % (Auto) 5 Eos % (Auto) 3 Baso % (Auto) 1 Neut # (Auto) 10.7 H Lymph # (Auto) 1.9 Kern # (Auto) 0.7 Eos # (Auto) 0.4 Baso # (Auto) 0.1 Immature Gran # (Auto) 0.05 H Absolute Nucleated RBC 0.00 Immature Gran % 0 Nucleated RBC % 0 Sodium 138 Potassium 4.7 Chloride 104 Carbon Dioxide 21.1 Anion Gap 13 BUN 32 H Creatinine 2.4 H D Estim Creat Clear Calc 28.4 L eGFR 24 L BUN/Creatinine Ratio [address] Glu mg/dL Hemoglobin A1c Calculated Osmolality 282 Uric Acid 9.1 H Calcium 9.0 Corrected Calcium 9.0 Phosphorus 4.3 4.4 Magnesium 1.8 Total Bilirubin 0.4 AST 13 ALT 9 L Alkaline Phosphatase 89 Total Protein 6.5 Albumin 4.0 Globulin 2.5 Albumin/Globulin Ratio 1.6 PTH Intact 177.4 H Ur Random Creatinine 36 U Random Total Protein 92 H Ur Random Sodium 94.0 Ur Random Potassium 18 05/02/25 12:11 WBC RBC Hgb Hct MCV MCH MCHC RDW Std Deviation Plt Count Neut % (Auto) Lymph % (Auto) Kern % (Auto) Eos % (Auto) Baso % (Auto) Neut # (Auto) Lymph # (Auto) Kern # (Auto) Eos # (Auto) Baso # (Auto) Immature Gran # (Auto) Absolute Nucleated RBC Immature Gran % Nucleated RBC % Sodium Potassium Chloride Carbon Dioxide Anion Gap BUN Creatinine Estim Creat Clear Calc eGFR BUN/Creatinine Ratio Glucose Estimated Ave Glu mg/dL 117 Hemoglobin A1c 5.7 Calculated Osmolality Uric Acid Calcium Corrected Calcium Phosphorus Magnesium Total Bilirubin AST ALT Alkaline Phosphatase Total Protein Albumin Globulin Albumin/Globulin Ratio PTH Intact Ur Random Creatinine U Random Total Protein Ur Random Sodium Ur Random Potassium Quality Measures Quality Measures VTE prophylaxis Assessment & Plan Assessment Current Active Medications: Generic Name Dose Route Start Last Admin Trade Name Freq PRN Reason Stop Dose Admin Acetaminophen 650 mg 05/01/25 15:45 05/01/25 15:49 Acetaminophen 325 Mg Tablet PO 05/31/25 15:44 650 mg Q4HR PRN Administration Fever >100 or pain 1-3 Amlodipine Besylate 10 mg 05/02/25 09:00 05/02/25 08:45 Amlodipine Besylate 5 Mg Tablet PO 06/01/25 08:59 10 mg QDAY LASHAE Administration Citric Acid/Sodium Citrate 30 ml 05/01/25 15:15 05/02/25 08:45 Citric Acid/Sodium Citr 15 Ml Udc (Bicitra) PO 05/31/25 15:14 30 ml BID LASHAE Administration Hydralazine HCl 10 mg 05/01/25 16:09 05/02/25 03:38 Hydralazine Inj 20 Mg/Ml Vial IVP 10 mg Q1H PRN Administration SBP>180mmHg Hydralazine HCl 25 mg 05/02/25 14:00 05/02/25 13:10 Hydralazine Hcl 25 Mg Tablet PO 06/01/25 13:59 25 mg TID LASHAE Administration Pharmacy Consult 1 each 05/01/25 12:40 Pharmacy Renal Dose Adjustment 1 Ea XX 05/31/25 12:39 PRN PRN CONSULT Spironolactone 25 mg 05/02/25 10:45 05/02/25 13:11 Spironolactone 25 Mg Tablet PO 06/01/25 10:44 25 mg BID LASHAE Administration Plan Summary: A 49-year-old female patient with past medical history of hypertension poorly controlled, chronic kidney disease with no follow-up, presented to the ED due to acute onset of chest pain for 1 day. Reported that the chest pain centrally located with no radiation. Patient was found to have elevated troponins and elevated serum creatinine admitted for non-STEMI workup and ANGEL LUIS treatment. 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 She is also known case of CKD however she does not see a coal gasification technician. On presentation her max blood pressure was 230/145 Renal ultrasound was performed which showed bilateral thinning of the cortical wall. No obstructions. creatin kinase was normal, FenNa 10%, renal US was negative for any hydronephrosis or obstruction Plan ? Cont the patient on hydralazine p.o. 25 mg twice daily ? Cont the patient amlodipine 5 mg p.o. daily - Spironolactone 50mg IV Qday ? Strict in and out ? Nephrology consultation to Dr. Bose was sent, recommendations appreciated ? Hydralazine 10 mg IV every hour for SBP more than 180 mmHg, max of 3 doses. ? Patient counseling regarding her ANGEL LUIS and CKD and the need to follow-up with coal gasification technician in outpatient #Non-STEMI type II Patient presented with centrally located chest pain, even that the patient pain was reproducible, we noticed that her serum troponin was elevated went up from 0.077, to 0.081, started to downtrend to 0.065 EKG did not show any ischemic changes. Chest x-ray was negative for any pneumothorax or pulmonary cause of chest pain. Patient denied any symptoms physical activity. 05/[address] Bell was consulted, recommended no cardiac intervention at this time. As the pain is reducible. Patient can be discharged from his standpoint. Plan ? Stop trending troponin ? Consult cardiology, recommendations appreciated ? Strict ins and outs #Leukocytosis WBC found to be 16.1, no signs of infection, no fever, no focal elevation. Today wbc 13 Plan ? Continue to monitor CBC daily Hospital Maintenance: FEN: Renal diet DVT ppx: Heparin subcu GI ppx: Protonix IV lines: PIV Preston: None Code status: Full code Dispo: Telemetry - Patient's plan and care discussed with my attending, Dr. Josie Garcias MD Internal Medicine PGY-3 Attending Provider Attestation/Addendum I have discussed and was present for the essential components of the history, physical examination, diagnosis, and treatment plan with the resident. I agree with the patient's care as documented by the resident and amended herein by me. Julien Galindo, DO. Although this document has been carefully reviewed, there may still be some phonetic and other typographical errors. These errors are purely grammatical due to imperfections in the software program and should not be construed in any way to compromise the substance of the patient's medical care during this visit.
[2025-05-03] VITALS (12 sets, daily range): BP systolic 116–167; BP diastolic 71–90; PULSE 65–96; RESP 16–18; TEMP 36.1–36.8; O2SAT 98–99
[2025-05-03 06:37] LABS: Basophils # (Auto) 0.0 Thou/mm3 (0.0-0.2); Basophils % (Auto) 0 % (0-2.5); Eosinophils # (Auto) 0.3 Thou/mm3 (0.0-0.5); Eosinophils % (Auto) 2 % (0-10); Hematocrit 36.6 % (36.0-46.0); Hemoglobin 12.0 g/dL (12.0-16.0); Immature Granulocytes Auto 0.05 Thou/mm3 (0.00-0.00); Lymphocytes # (Auto) 2.2 Thou/mm3 (1.0-4.8); Lymphocytes % (Auto) 16 % (10-50); Mean Corpuscular HGB Conc 32.8 g/dl (31.0-37.0); Mean Corpuscular Hemoglobin 28.6 pg (25.0-35.0); Mean Corpuscular Volume 87 fL (80-100); Monocytes # (Auto) 0.7 Thou/mm3 (0.0-0.8); Monocytes % (Auto) 5 % (0-12); Neutrophils # (Auto) 10.6 Thou/mm3 (1.8-7.7); Neutrophils % (Auto) 77 % (37-80); Nucleated Red Blood Cell # 0.00 Thou/mm3 (0.00-0.00); Nucleated Red Blood Cell % 0 /100 WBC (0); Platelet Count 292 Thou/mm3 (140-440); RDW Standard Deviation 42.8 fL (36.4-46.3); Red Blood Count 4.20 Miln/mm3 (4.00-5.20); White Blood Count 13.8 Thou/mm3 (3.6-11.0)
--- NOTE | 2025-05-03 07:05 | PD.RESPRO ---
Documentation for date of: 05/03/25 Subjective Subjective Interval history: Ms Salas is a 49 yo woman with PMH of poorly controlled HTN (not taking medications), CKD (not followed by a certified corporate travel executive) who presented to the ED with acute onset non radiating chest pain in the center of the chest, worse with inspiration, not associated with exertion, no orthopnea, no LE edema, no palpitations. Pt reports having increased stress recently, since she has recently from her . She does not have any children. She states that she had been diagnosed with HTN about 1-2 years ago but was not taking any medications. She states that about 2 days prior to coming to the hospital she had eaten some licorice candies. She states that she occationally takes APAP for pain, but denies chronic NSAID use. 05/01/2025: Nephrology consulted, for ANGEL LUIS on CKD, HTN emergency with SBP to 200s. 05/02/2025 Patient seen and examined at bedside. reaffirms that she was not taking any antihypertensives at home, intermittent APAP use, no nsaids, reports no hx of DM. Lungs clear to auscultation bilaterally. trace edema bilaterally in lower extremities. 05/03/2025 patient seen and examined at bedside, sitting at the edge of the bed ready for breakfast. She states that she has some increased nasal congestion. BP remains elevated to 160s, heart tachycardic to 110s, lungs ctab, trace edema bilateral LE, no abdominal pain. Cr 2.6 from 2.4, A1c 5.7. rec d/c amlodipine, cont spirinalactone 25 bid, hydralazine 24 TID and add metop tartrate 50 BID. Exam Vital Signs Temp Pulse Resp BP Pulse Ox O2 Del Method 97.1 F 74 16 167/88 H 99 Room Air 05/03/25 04:00 05/03/25 05:23 05/03/25 04:00 05/03/25 05:23 05/03/25 04:00 05/03/25 04:00 Narrative Exam GENERAL: no acute distress, AAO x3, sitting at the edge of bed. HEENT: Head AT/ NC. Mucous membranes moist. PERRL. rhinorrhea. NECK: Supple, no lymphadenopathy, no carotid bruits. CARDIOVASCULAR: tachycardic, regular rhythm. Normal S1/S2, No m/r/g. trace edema of bilateral LEs. RESPIRATORY: CTAB. No wheezing, rhonchi, crackles., intermittent dry cough GASTROINTESTINAL: Abdomen soft, non tender no palpable masses. Bowel sounds present MUSCULOSKELETAL:? No cyanosis or edema, no visible joint swelling. NEUROLOGICAL: CN II-XII grossly intact. No focal deficits. Sensation intact, symmetric. PSYCHIATRIC: Awake and alert, not agitated, normal mood and affect. SKIN: raised pink and skin colored plaques on extensor surfaces of elbows and behind ears, and on near scalp, no jaundice, normal turgor. Objective Labs 05/03/25 05:24 05/03/25 05:24 Labs: Laboratory Results - last 24 hr 05/02/25 05/02/25 04:10 12:11 Sodium 138 Potassium 4.7 Chloride 104 Carbon Dioxide 21.1 Anion Gap 13 BUN 32 H Creatinine 2.4 H D Estim Creat Clear Calc 28.4 L eGFR 24 L BUN/Creatinine Ratio [address] Glu mg/dL 117 Hemoglobin A1c 5.7 Calculated Osmolality 282 Uric Acid 9.1 H Calcium 9.0 Corrected Calcium 9.0 Phosphorus 4.4 Magnesium 1.8 Total Bilirubin 0.4 AST 13 ALT 9 L Alkaline Phosphatase 89 Total Protein 6.5 Albumin 4.0 Globulin 2.5 Albumin/Globulin Ratio 1.6 Quality Measures Quality Measures VTE prophylaxis Assessment & Plan Assessment Current Active Medications: Generic Name Dose Route Start Last Admin Trade Name Freq PRN Reason Stop Dose Admin Acetaminophen 650 mg 05/01/25 15:45 05/01/25 15:49 Acetaminophen 325 Mg Tablet PO 05/31/25 15:44 650 mg Q4HR PRN Administration Fever >100 or pain 1-3 Amlodipine Besylate 10 mg 05/02/25 09:00 05/02/25 08:45 Amlodipine Besylate 5 Mg Tablet PO 06/01/25 08:59 10 mg QDAY LASHAE Administration Citric Acid/Sodium Citrate 30 ml 05/01/25 15:15 05/02/25 20:23 Citric Acid/Sodium Citr 15 Ml Udc (Bicitra) PO 05/31/25 15:14 30 ml BID LASHAE Administration Hydralazine HCl 10 mg 05/01/25 16:09 05/02/25 03:38 Hydralazine Inj 20 Mg/Ml Vial IVP 10 mg Q1H PRN Administration SBP>180mmHg Hydralazine HCl 25 mg 05/02/25 14:00 05/03/25 05:23 Hydralazine Hcl 25 Mg Tablet PO 06/01/25 13:59 25 mg TID LASHAE Administration Pharmacy Consult 1 each 05/01/25 12:40 Pharmacy Renal Dose Adjustment 1 Ea XX 05/31/25 12:39 PRN PRN CONSULT Spironolactone 25 mg 05/02/25 10:45 05/02/25 20:23 Spironolactone 25 Mg Tablet PO 06/01/25 10:44 25 mg BID LASHAE Administration Plan Ms. Salas is a year-old female patient with past medical history of hypertension poorly controlled, chronic kidney disease with no follow-up, presented to the ED due to acute onset of chest pain for 1 day. Reported that the chest pain centrally located with no radiation. Patient was found to have elevated troponins and elevated serum creatinine admitted for non-STEMI workup and ANGEL LUIS treatment. Nephrology consulted for ANGEL LUIS on CKD. #ANGEL LUIS on CKD Stage 4 #query 2/2 uncontrolled HTN - renal US with bilatteral cortical thinning on 05/02 Cr 2.4 from 2.9 BUN 32 from 34, K wnl , likely prerenal on 05/03 Cr 2.6 from 2.4 BUN 42 from 32, likely secondary to BP fluctuations and HTN urgency Plan - strict i and o - encourage PO intake - avoid nephrotoxic agents - better control of BP (see #htn emergency below) - reccomend f/u with [facility] - follow up with certified corporate travel executive outatient. #HTN emergency #HTN- poorly controlled pt reports not taking antihypertensives at home pt reports increased stress pt reports eating licorice candies during the past few days on 05/03 tachycardic to 110s, BP remains elevated to 160s PLAN: - advise pt to avoid licorice foods and candies. (see this publication about licorice and HTN association doi: 10.3390/wz51682945. PMID: 76413260; PMCID: [id number].) - d/c amlodipine 10 mg qd - ADD metoprolol tartrate 50 BID (for better BP control and HR control given tachycardic on exam - cont hydralazine 25 TID - cont spirinolactone 25 BID #NSTEMI type 1 vs type 2 vs chostochondritis - CARDS consulted, rec outpatient f/u #Leukocytosis - 13 from 13 #query DM- ruled out #prediabetes -A1c 5.7 (05/02/2025) #rhinorhea - rec azelastine nasal spray for symptoms #HLD triglycerides and cholesterol and LDL elevated. - consider statin Management as per primary team Plan discussed with nephrology attending Dr. Lidya Roca MD Internal Medicine PGY- Attending Provider Attestation/Addendum Patient seen and examined with resident physician Dr. Roca. Note reviewed, agree with findings and recommendations. Patient presented with uncontrolled hypertension, ANGEL LUIS. Suspect patient has hypertensive nephrosclerosis for some time. Kidney ultrasound showed cortical thinning. PTH at 177 suggestive of underlying CKD. 2017 her Creatinine was 1.1. Spoke to primary team-continue with Aldactone. Added metoprolol for better blood pressure control. If creatinine stable can be discharged with outpatient follow-up.
[2025-05-03 07:20] LABS: Alanine Aminotransferase 8 U/L (10-49); Albumin, Serum 4.0 gm/dL (3.5-5.0); Albumin/Globulin Ratio 1.6 (1.2-2.2); Alkaline Phosphatase 83 U/L (46-116); Anion Gap 11 (7-16); Aspartate Amino Transferase 10 U/L (0-34); BUN/Creatinine Ratio 16 Ratio (12-20); Bilirubin,Total 0.3 mg/dL (0.3-1.2); Blood Urea Nitrogen 42 mg/dL (9-23); Calcium 9.1 mg/dL (8.3-10.6); Calcium (Corrected) 9.1 mg/dL (8.5-10.1); Carbon Dioxide 24.5 mMol/L (20.0-31.0); Cardiac Risk Estimate 4.2 RATIO (3.7-5.6); Chloride 103 mMol/L (98-107); Cholesterol 218 mg/dL (132-200); Creatinine (Component) 2.6 mg/dL (0.6-1.3); Estimated Creatinine Clearance 26.2 mL/min (>60); Globulin 2.5 gm/dL (2.3-3.5); Glucose 99 mg/dL (74-106); HDL Cholesterol 52 mg/dL (40-60); LDL Cholesterol,Calculated 134 mg/dL (0-130); Magnesium 2.0 mg/dL (1.6-2.6); Osmolality,Calculated 286 (275-295); Phosphorous 4.4 mg/dL (2.4-5.1); Potassium 4.4 mMol/L (3.4-5.1); Sodium 138 mMol/L (136-145); Thyroid Stimulating Hormone 2.27 uIU/mL (0.55-4.78); Total Protein 6.5 gm/dL (5.7-8.2); Triglycerides 160 mg/dL (30-150); eGFR 22 See Note
[2025-05-03] MEDS: SPIRONOLACTONE 25 MG TABLET PO ×2 (08:27→10:08)
[2025-05-03] MEDS: CITRIC ACID/SODIUM CITR 15 ML UDC (BICITRA) 30 ML PO ×2 (08:28→21:37)
[2025-05-03] MEDS: METOPROLOL TARTRATE 25 MG TABLET 50 MG PO ×2 (10:07→21:36)
--- NOTE | 2025-05-03 11:41 | PC.SS ---
rounding note: Patient not medically stable for discharge. Possible d/c tomorrow
--- NOTE | 2025-05-03 16:29 | PD.RESPRO ---
Documentation for date of: 05/03/25 Subjective Subjective Interval history: Patient was seen and examined at bedside. Denied any new symptoms. Her serum creatinine still 2.6, nephrology team recommended to keep blood pressure on the high normal range to improve kidney perfusion. Patient was also noticed to be tachycardic for the reason we stopped hydralazine and started the patient on metoprolol and continue spironolactone to 25 mg p.o. daily. Will continue to monitor serum creatinine till tomorrow. Anticipated discharge tomorrow. Exam Vital Signs Temp Pulse Resp BP Pulse Ox O2 Del Method 97.2 F 78 16 128/74 98 Room Air 05/03/25 11:46 05/03/25 12:00 05/03/25 11:46 05/03/25 11:46 05/03/25 11:46 05/03/25 11:46 Narrative Exam GEN: AOx3, able to speak full sentences HEENT: NC/AC, PERRLA, oral mucosa moist, neck supple CVS: RRR, S1-S2 present, no murmurs appreciated RESP: CTAB GI: soft,non distended, non tender, NBS MSK: able to move all 4 limbs, still has trace lower extremity edema SKIN: warm and dry ASSISTANT PROFESSOR OF SPANISH: CN II-XII and Sensation grossly intact. Objective Labs 05/03/25 05:24 05/03/25 05:24 Labs: Laboratory Results - last 24 hr 05/03/25 05:24 WBC 13.8 H RBC 4.20 Hgb 12.0 Hct 36.6 MCV 87 MCH 28.6 MCHC 32.8 RDW Std Deviation 42.8 Plt Count 292 Neut % (Auto) 77 Lymph % (Auto) 16 [place] % (Auto) 5 Eos % (Auto) 2 Baso % (Auto) 0 Neut # (Auto) 10.6 H Lymph # (Auto) 2.2 [place] # (Auto) 0.7 Eos # (Auto) 0.3 Baso # (Auto) 0.0 Immature Gran # (Auto) 0.05 H Absolute Nucleated RBC 0.00 Immature Gran % 0 Nucleated RBC % 0 Sodium 138 Potassium 4.4 Chloride 103 Carbon Dioxide 24.5 Anion Gap 11 BUN 42 H Creatinine 2.6 H Estim Creat Clear Calc 26.2 L eGFR 22 L BUN/Creatinine Ratio 16 Glucose 99 Calculated Osmolality 286 Calcium 9.1 Corrected Calcium 9.1 Phosphorus 4.4 Magnesium 2.0 Total Bilirubin 0.3 AST 10 ALT 8 L Alkaline Phosphatase 83 Total Protein 6.5 Albumin 4.0 Globulin 2.5 Albumin/Globulin Ratio 1.6 Triglycerides 160 H Cholesterol 218 H LDL Cholesterol, Calc 134 H HDL Cholesterol 52 Cholesterol/HDL Ratio 4.2 TSH 2.27 Quality Measures Quality Measures VTE prophylaxis Assessment & Plan Assessment Current Active Medications: Generic Name Dose Route Start Last Admin Trade Name Freq PRN Reason Stop Dose Admin Acetaminophen 650 mg 05/01/25 15:45 05/01/25 15:49 Acetaminophen 325 Mg Tablet PO 05/31/25 15:44 650 mg Q4HR PRN Administration Fever >100 or pain 1-3 Amlodipine Besylate 10 mg 05/02/25 09:00 05/03/25 08:27 Amlodipine Besylate 5 Mg Tablet PO 06/01/25 08:59 10 mg QDAY LASHAE Administration Citric Acid/Sodium Citrate 30 ml 05/01/25 15:15 05/03/25 08:28 Citric Acid/Sodium Citr 15 Ml Udc (Bicitra) PO 05/31/25 15:14 30 ml BID LASHAE Administration Hydralazine HCl 10 mg 05/01/25 16:09 05/02/25 03:38 Hydralazine Inj 20 Mg/Ml Vial IVP 10 mg Q1H PRN Administration SBP>180mmHg Hydralazine HCl 25 mg 05/02/25 14:00 05/03/25 05:23 Hydralazine Hcl 25 Mg Tablet PO 06/01/25 13:59 25 mg TID LASHAE Administration Metoprolol Tartrate 50 mg 05/03/25 09:00 05/03/25 10:07 Metoprolol Tartrate 25 Mg Tablet PO 06/02/25 08:59 50 mg BID LASHAE Administration Pharmacy Consult 1 each 05/01/25 12:40 Pharmacy Renal Dose Adjustment 1 Ea XX 05/31/25 12:39 PRN PRN CONSULT Spironolactone 50 mg 05/04/25 09:00 Spironolactone 25 Mg Tablet PO 06/03/25 08:59 QDAY LASHAE Plan Summary: A 49-year-old female patient with past medical history of hypertension poorly controlled, chronic kidney disease with no follow-up, presented to the ED due to acute onset of chest pain for 1 day. Reported that the chest pain centrally located with no radiation. Patient was found to have elevated troponins and elevated serum creatinine admitted for non-STEMI workup and ANGEL LUIS treatment. 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 She is also known case of CKD however she does not see a biology intern. On presentation her max blood pressure was 230/145 Renal ultrasound was performed which showed bilateral thinning of the cortical wall. No obstructions. creatin kinase was normal, FenNa 10%, renal US was negative for any hydronephrosis or obstruction Plan ? Switch hydralazine p.o. to metoprolol succinate 50 mg p.o. daily due to increased heart rate ? Hold amlodipine 5 mg p.o. daily - Spironolactone 25mg IV Qday ? Strict in and out ? Nephrology consultation to Dr. Bose was sent, recommendations appreciated ? Hydralazine 10 mg IV every hour for SBP more than 180 mmHg, max of 3 doses. ? Patient counseling regarding her ANGEL LUIS and CKD and the need to follow-up with biology intern in outpatient #Non-STEMI type II Patient presented with centrally located chest pain, even that the patient pain was reproducible, we noticed that her serum troponin was elevated went up from 0.077, to 0.081, started to downtrend to 0.065 EKG did not show any ischemic changes. Chest x-ray was negative for any pneumothorax or pulmonary cause of chest pain. Patient denied any symptoms physical activity. 05/[address] Bell was consulted, recommended no cardiac intervention at this time. As the pain is reducible. Patient can be discharged from his standpoint. Plan ? Stop trending troponin ? Consult cardiology, recommendations appreciated ? Strict ins and outs #Leukocytosis WBC found to be 16.1, no signs of infection, no fever, no focal elevation. 05/03 WBC cell 13.8 Plan ? Continue to monitor CBC daily, follow-up in outpatient settings upon discharge Hospital Maintenance: FEN: Renal diet DVT ppx: Heparin subcu GI ppx: Protonix IV lines: PIV [place]: None Code status: Full code Dispo: Telemetry - Patient's plan and care discussed with my attending, Dr. Josie Garcias MD Internal Medicine PGY-3 Attending Provider Attestation/Addendum I have discussed and was present for the essential components of the history, physical examination, diagnosis, and treatment plan with the resident. I agree with the patient's care as documented by the resident and amended herein by me. Julien Galindo DO. Although this document has been carefully reviewed, there may still be some phonetic and other typographical errors. These errors are purely grammatical due to imperfections in the software program and should not be construed in any way to compromise the substance of the patient's medical care during this visit.
[2025-05-04] VITALS (9 sets, daily range): BP systolic 113–153; BP diastolic 65–83; PULSE 58–71; RESP 12–21; TEMP 36.3–36.7; O2SAT 95–99
[2025-05-04 06:42] LABS: Basophils # (Auto) 0.1 Thou/mm3 (0.0-0.2); Basophils % (Auto) 1 % (0-2.5); Eosinophils # (Auto) 0.5 Thou/mm3 (0.0-0.5); Eosinophils % (Auto) 3 % (0-10); Hematocrit 37.0 % (36.0-46.0); Hemoglobin 11.9 g/dL (12.0-16.0); Immature Granulocytes Auto 0.06 Thou/mm3 (0.00-0.00); Lymphocytes # (Auto) 2.5 Thou/mm3 (1.0-4.8); Lymphocytes % (Auto) 18 % (10-50); Mean Corpuscular HGB Conc 32.2 g/dl (31.0-37.0); Mean Corpuscular Hemoglobin 28.7 pg (25.0-35.0); Mean Corpuscular Volume 89 fL (80-100); Monocytes # (Auto) 0.8 Thou/mm3 (0.0-0.8); Monocytes % (Auto) 6 % (0-12); Neutrophils # (Auto) 10.1 Thou/mm3 (1.8-7.7); Neutrophils % (Auto) 72 % (37-80); Nucleated Red Blood Cell # 0.00 Thou/mm3 (0.00-0.00); Nucleated Red Blood Cell % 0 /100 WBC (0); Platelet Count 282 Thou/mm3 (140-440); RDW Standard Deviation 44.0 fL (36.4-46.3); Red Blood Count 4.15 Miln/mm3 (4.00-5.20); White Blood Count 14.0 Thou/mm3 (3.6-11.0)
[2025-05-04 06:51] LABS: Vitamin D 25 Hydroxy Total 23.4 ng/mL (7.3-40.2)
[2025-05-04 07:11] LABS: Alanine Aminotransferase 9 U/L (10-49); Albumin, Serum 3.8 gm/dL (3.5-5.0); Albumin/Globulin Ratio 1.6 (1.2-2.2); Alkaline Phosphatase 78 U/L (46-116); Anion Gap 10 (7-16); Aspartate Amino Transferase 12 U/L (0-34); BUN/Creatinine Ratio 15 Ratio (12-20); Bilirubin,Total 0.3 mg/dL (0.3-1.2); Blood Urea Nitrogen 45 mg/dL (9-23); Calcium 9.1 mg/dL (8.3-10.6); Calcium (Corrected) 9.3 mg/dL (8.5-10.1); Carbon Dioxide 25.0 mMol/L (20.0-31.0); Chloride 103 mMol/L (98-107); Creatinine (Component) 3.0 mg/dL (0.6-1.3); Estimated Creatinine Clearance 22.7 mL/min (>60); Globulin 2.4 gm/dL (2.3-3.5); Glucose 92 mg/dL (74-106); Magnesium 2.1 mg/dL (1.6-2.6); Osmolality,Calculated 287 (275-295); Phosphorous 4.3 mg/dL (2.4-5.1); Potassium 4.9 mMol/L (3.4-5.1); Sodium 138 mMol/L (136-145); Total Protein 6.2 gm/dL (5.7-8.2); Uric Acid 9.6 mg/dL (3.1-7.8); eGFR 19 See Note
--- NOTE | 2025-05-04 09:09 | ESPR_ITS ---
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 Pt reports having increased stress recently, since she has recently from her . She does not have any children. She states that she had been diagnosed with HTN about 1-2 years ago but was not taking any medications. She states that about 2 days prior to coming to the hospital she had eaten some licorice candies. She states that she occationally takes APAP for pain, but denies chronic NSAID use. 05/01/2025: Nephrology consulted, for ANGEL LUIS on CKD, HTN emergency with SBP to 200s. 05/02/2025 Patient seen and examined at bedside. reaffirms that she was not taking any antihypertensives at home, intermittent APAP use, no nsaids, reports no hx of DM. Lungs clear to auscultation bilaterally. trace edema bilaterally in lower extremities. 05/03/2025 patient seen and examined at bedside, sitting at the edge of the bed ready for breakfast. She states that she has some increased nasal congestion. BP remains elevated to 160s, heart tachycardic to 110s, lungs ctab, trace edema bilateral LE, no abdominal pain. Cr 2.6 from 2.4, A1c 5.7. rec d/c amlodipine, cont spirinalactone 25 bid, hydralazine 24 TID and add metop tartrate 50 BID. 05/04/2025. Patient seen and examined at bedside, Laying comfortably in bed following breakfast. She states that she has no new complaints but that she would like to address her health issues. Her SBP 130s to 150s, HR wnl, continues on amlodipine 10, spirinolactone 25 QD, and Metoprolol tartrate 50 BID, Holding hydral 25 mg TID per primary team. Cr 3.0 from 2.6 BUN inc 45 from 42. Uric acid elevated. WBC remains elevated at 14. CKD likely given elevated PTH 177, vit D pending, Pt became tearful and shared that she is stressed about a lot of things and that she does want to resolve her health issues. Query ATN, Plan for NM renal function and flow. Exam Vital Signs Temp Pulse Resp BP Pulse Ox O2 Del Method 97.8 F 60 18 153/83 H 98 Room Air 05/04/25 08:00 05/04/25 08:00 05/04/25 08:00 05/04/25 08:00 05/04/25 08:00 05/04/25 08:00 Narrative Exam GENERAL: no acute distress, AAO x3, sitting at the edge of bed. HEENT: Head AT/ NC. Mucous membranes moist. PERRL. NECK: Supple, no lymphadenopathy, no carotid bruits. CARDIOVASCULAR: RRR,Normal S1/S2, No m/r/g. scant edema of bilateral LEs. RESPIRATORY: CTAB. No wheezing, rhonchi, crackles., intermittent dry cough GASTROINTESTINAL: Abdomen soft, non tender no palpable masses. Bowel sounds present MUSCULOSKELETAL:? No cyanosis or edema, no visible joint swelling. NEUROLOGICAL: CN II-XII grossly intact. No focal deficits. Sensation intact, symmetric. PSYCHIATRIC: Awake and alert, , tearful, SKIN: raised pink and skin colored plaques on extensor surfaces of elbows and behind ears, and on near scalp, no jaundice, normal turgor. Objective Labs 05/04/25 05:25 05/04/25 05:25 Labs: Laboratory Results - last 24 hr 05/04/25 05:25 WBC 14.0 H RBC 4.15 Hgb 11.9 L Hct 37.0 MCV 89 MCH 28.7 MCHC 32.2 RDW Std Deviation 44.0 Plt Count 282 Neut % (Auto) 72 Lymph % (Auto) 18 [place] % (Auto) 6 Eos % (Auto) 3 Baso % (Auto) 1 Neut # (Auto) 10.1 H Lymph # (Auto) 2.5 [place] # (Auto) 0.8 Eos # (Auto) 0.5 Baso # (Auto) 0.1 Immature Gran # (Auto) 0.06 H Absolute Nucleated RBC 0.00 Immature Gran % 0 Nucleated RBC % 0 Sodium 138 Potassium 4.9 D Chloride 103 Carbon Dioxide 25.0 Anion Gap 10 BUN 45 H Creatinine 3.0 H Estim Creat Clear Calc 22.7 L eGFR 19 L BUN/Creatinine Ratio 15 Glucose 92 Calculated Osmolality 287 Uric Acid 9.6 H Calcium 9.1 Corrected Calcium 9.3 Phosphorus 4.3 Magnesium 2.1 Total Bilirubin 0.3 AST 12 ALT 9 L Alkaline Phosphatase 78 Total Protein 6.2 Albumin 3.8 Globulin 2.4 Albumin/Globulin Ratio 1.6 25-OH Vitamin D Total 23.4 Quality Measures Quality Measures VTE prophylaxis Assessment & Plan Assessment Current Active Medications: Generic Name Dose Route Start Last Admin Trade Name Freq PRN Reason Stop Dose Admin Acetaminophen 650 mg 05/01/25 15:45 05/01/25 15:49 Acetaminophen 325 Mg Tablet PO 05/31/25 15:44 650 mg Q4HR PRN Administration Fever >100 or pain 1-3 Amlodipine Besylate 10 mg 05/02/25 09:00 05/03/25 08:27 Amlodipine Besylate 5 Mg Tablet PO 06/01/25 08:59 10 mg QDAY LASHAE Administration Calcitriol 0.25 mcg 05/04/25 09:00 Calcitriol 0.25 Mcg Capsule PO 06/03/25 08:59 QDAY LASHAE Hydralazine HCl 10 mg 05/01/25 16:09 05/02/25 03:38 Hydralazine Inj 20 Mg/Ml Vial IVP 10 mg Q1H PRN Administration SBP>180mmHg Hydralazine HCl 25 mg 05/02/25 14:00 05/03/25 05:23 Hydralazine Hcl 25 Mg Tablet PO 06/01/25 13:59 25 mg TID LASHAE Administration Metoprolol Tartrate 50 mg 05/03/25 09:00 05/03/25 21:36 Metoprolol Tartrate 25 Mg Tablet PO 06/02/25 08:59 50 mg BID LASHAE Administration Pharmacy Consult 1 each 05/01/25 12:40 Pharmacy Renal Dose Adjustment 1 Ea XX 05/31/25 12:39 PRN PRN CONSULT Spironolactone 25 mg 05/04/25 09:00 Spironolactone 25 Mg Tablet PO 06/03/25 08:59 QDAY LASHAE Plan Ms. Salas is a year-old female patient with past medical history of hypertension poorly controlled, chronic kidney disease with no follow-up, presented to the ED due to acute onset of chest pain for 1 day. Reported that the chest pain centrally located with no radiation. Patient was found to have elevated troponins and elevated serum creatinine admitted for non-STEMI workup and ANGEL LUIS treatment. Nephrology consulted for ANGEL LUIS on CKD. Cr contines to uptrend, query ATN, pending NM renal flow and function scan. #ANGEL LUIS on CKD Stage 4 #query ATN #query 2/2 uncontrolled HTN - renal US with bilatteral cortical thinning on 05/02 Cr 2.4 from 2.9 BUN 32 from 34, K wnl , likely prerenal on 05/03 Cr 2.6 from 2.4 BUN 42 from 32, likely secondary to BP fluctuations and HTN urgency on 05/04 Cr 3.0 from 2.6, BUN 45 from 42, PTH elevated, Vit D Pending, query ATN, pending NM renal scan. Plan - strict i and o - encourage PO intake - avoid nephrotoxic agents - better control of BP (see #htn emergency below) - pending NM renal function and flow scan, - reccomend f/u with [facility] - follow up with chemical treatment plant technician outatient. #HTN emergency #HTN- poorly controlled pt reports not taking antihypertensives at home pt reports increased stress pt reports eating licorice candies during the past few days on 05/03 tachycardic to 110s, BP remains elevated to 160s on 05/04 tachycardia resolved, HR wnl, BP remains elevated 130s-150s. PLAN: - advise pt to avoid licorice foods and candies. (see this publication about licorice and HTN association doi: 10.3390/fi68417447. PMID: 64406294; PMCID: [id number].) - cont per primary team amlodipine 10 mg qd - cont metoprolol tartrate 50 BID - holding per primary team hydralazine 25 TID - cont spirinolactone 25 BID #NSTEMI type 1 vs type 2 vs chostochondritis - CARDS consulted, rec outpatient f/u #Leukocytosis - remains elevated at 14-- no source #query DM- ruled out #prediabetes -A1c 5.7 (05/02/2025) #rhinorhea - rec azelastine nasal spray for symptoms #HLD triglycerides and cholesterol and LDL elevated. - consider statin #Hyperuricemia #query gout? #Psoriasis pt has placques on extensor surfaces of upper extrem and behind ears. -cacitriol Management as per primary team Plan discussed with nephrology attending Dr. Lidya Roca MD Internal Medicine PGY- Attending Provider Attestation/Addendum Patient seen and examined with resident physician Dr. Roca. Note reviewed, agree with findings and recommendations. Patient presented with uncontrolled hypertension, ANGEL LUIS. Suspect patient has hypertensive nephrosclerosis for some time. Kidney ultrasound showed cortical thinning. PTH at 177 suggestive of underlying CKD. 2016 her Creatinine was 1.1. Spoke to primary team-continue with Aldactone. Added metoprolol for better blood pressure control. 05/04/2025 creatinine continues to be elevated. Suspect patient in ATN from hypertensive urgency when she presented. Will repeat urinalysis. If significant amount of blood or protein will plan for biopsy. On admission urine protein/creatinine 2.5 g Renal scan ordered to check the flow and function of the kidneys
--- NOTE | 2025-05-04 09:09 | XR_ITS ---
Examination: Nuclear medicine renal flow and function, multiple studies Date and time: May 05, 2025 0949 hours INDICATIONS: Hypertension history, renal insufficiency on laboratory examination this week TECHNIQUE AND FINDINGS: Intravenous administration 10.6 mCi technetium 99m MAG3 Normal flow right and left kidneys Severely impaired bilateral renal function, persistent activity on both right and left sides at 20 minutes remains at 80% IMPRESSION: Severely impaired bilateral renal function
[2025-05-04] MEDS: METOPROLOL TARTRATE 25 MG TABLET 50 MG PO ×2 (09:27→20:58)
[2025-05-04] MEDS: SPIRONOLACTONE 25 MG TABLET PO (09:31)
--- NOTE | 2025-05-04 17:10 | ESPR_ITS ---
Documentation for date of: 05/04/25 Subjective Subjective Interval history: Patient was seen and examined at bedside, denied any new symptoms. Serum creatinine continued to worsen. Centerless Grinder Operator Dr. Bose recommended nuclear scan before discharge. Her blood pressure ranged between 140s to 150s. Exam Vital Signs Temp Pulse Resp BP Pulse Ox O2 Del Method 97.5 F 58 L 17 118/71 98 Room Air 05/04/25 12:00 05/04/25 12:00 05/04/25 12:00 05/04/25 12:00 05/04/25 12:00 05/04/25 12:00 Narrative Exam GEN: AOx3, able to speak full sentences HEENT: NC/AC, PERRLA, oral mucosa moist, neck supple CVS: RRR, S1-S2 present, no murmurs appreciated RESP: CTAB GI: soft,non distended, non tender, NBS MSK: able to move all 4 limbs, still has trace lower extremity edema SKIN: warm and dry OPHTHALMOLOGIST: CN II-XII and Sensation grossly intact. Objective Labs 05/05/25 05:41 05/05/25 05:41 Labs: Laboratory Results - last 24 hr 05/04/25 05:25 WBC 14.0 H RBC 4.15 Hgb 11.9 L Hct 37.0 MCV 89 MCH 28.7 MCHC 32.2 RDW Std Deviation 44.0 Plt Count 282 Neut % (Auto) 72 Lymph % (Auto) 18 [place] % (Auto) 6 Eos % (Auto) 3 Baso % (Auto) 1 Neut # (Auto) 10.1 H Lymph # (Auto) 2.5 [place] # (Auto) 0.8 Eos # (Auto) 0.5 Baso # (Auto) 0.1 Immature Gran # (Auto) 0.06 H Absolute Nucleated RBC 0.00 Immature Gran % 0 Nucleated RBC % 0 Sodium 138 Potassium 4.9 D Chloride 103 Carbon Dioxide 25.0 Anion Gap 10 BUN 45 H Creatinine 3.0 H Estim Creat Clear Calc 22.7 L eGFR 19 L BUN/Creatinine Ratio 15 Glucose 92 Calculated Osmolality 287 Uric Acid 9.6 H Calcium 9.1 Corrected Calcium 9.3 Phosphorus 4.3 Magnesium 2.1 Total Bilirubin 0.3 AST 12 ALT 9 L Alkaline Phosphatase 78 Total Protein 6.2 Albumin 3.8 Globulin 2.4 Albumin/Globulin Ratio 1.6 25-OH Vitamin D Total 23.4 Quality Measures Quality Measures VTE prophylaxis Assessment & Plan Assessment Current Active Medications: Generic Name Dose Route Start Last Admin Trade Name Freq PRN Reason Stop Dose Admin Acetaminophen 650 mg 05/01/25 15:45 05/01/25 15:49 Acetaminophen 325 Mg Tablet PO 05/31/25 15:44 650 mg Q4HR PRN Administration Fever >100 or pain 1-3 Amlodipine Besylate 10 mg 05/02/25 09:00 05/04/25 09:31 Amlodipine Besylate 5 Mg Tablet PO 06/01/25 08:59 10 mg QDAY LASHAE Administration Calcitriol 0.25 mcg 05/04/25 09:00 05/04/25 09:31 Calcitriol 0.25 Mcg Capsule PO 06/03/25 08:59 0.25 mcg QDAY LASHAE Administration Hydralazine HCl 10 mg 05/01/25 16:09 05/02/25 03:38 Hydralazine Inj 20 Mg/Ml Vial IVP 10 mg Q1H PRN Administration SBP>180mmHg Hydralazine HCl 25 mg 05/02/25 14:00 05/03/25 05:23 Hydralazine Hcl 25 Mg Tablet PO 06/01/25 13:59 25 mg TID LASHAE Administration Metoprolol Tartrate 50 mg 05/03/25 09:00 05/04/25 09:27 Metoprolol Tartrate 25 Mg Tablet PO 06/02/25 08:59 50 mg BID LASHAE Administration Pharmacy Consult 1 each 05/01/25 12:40 Pharmacy Renal Dose Adjustment 1 Ea XX 05/31/25 12:39 PRN PRN CONSULT Spironolactone 25 mg 05/04/25 09:00 05/04/25 09:31 Spironolactone 25 Mg Tablet PO 06/03/25 08:59 25 mg QDAY LASHAE Administration Plan Summary: A 49-year-old female patient with past medical history of hypertension poorly controlled, chronic kidney disease with no follow-up, presented to the ED due to acute onset of chest pain for 1 day. Reported that the chest pain centrally located with no radiation. Patient was found to have elevated troponins and elevated serum creatinine admitted for non-STEMI workup and ANGEL LUIS treatment. 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 She is also known case of CKD however she does not see a electronic page makeup system operator. On presentation her max blood pressure was 230/145 Renal ultrasound was performed which showed bilateral thinning of the cortical wall. No obstructions. creatin kinase was normal, FenNa 10%, renal US was negative for any hydronephrosis or obstruction Plan ?Nuclear scan today by Dr. Bose. ? Switch hydralazine p.o. to metoprolol succinate 50 mg p.o. daily due to increased heart rate ? Hold amlodipine 5 mg p.o. daily - Spironolactone 25mg IV Qday ? Strict in and out ? Nephrology consultation to Dr. Bose was sent, recommendations appreciated ? Hydralazine 10 mg IV every hour for SBP more than 180 mmHg, max of 3 doses. ? Patient counseling regarding her ANGEL LUIS and CKD and the need to follow-up with electronic page makeup system operator in outpatient #Non-STEMI type II Patient presented with centrally located chest pain, even that the patient pain was reproducible, we noticed that her serum troponin was elevated went up from 0.077, to 0.081, started to downtrend to 0.065 EKG did not show any ischemic changes. Chest x-ray was negative for any pneumothorax or pulmonary cause of chest pain. Patient denied any symptoms physical activity. 05/[address] Bell was consulted, recommended no cardiac intervention at this time. As the pain is reducible. Patient can be discharged from his standpoint. Plan ? Stop trending troponin ? Consult cardiology, recommendations appreciated ? Strict ins and outs #Leukocytosis WBC found to be 16.1, no signs of infection, no fever, no focal elevation. 05/03 WBC cell 13.8 Plan ? Continue to monitor CBC daily, follow-up in outpatient settings upon discharge Hospital Maintenance: FEN: Renal diet DVT ppx: Heparin subcu GI ppx: Protonix IV lines: PIV [place]: None Code status: Full code Dispo: Telemetry - Patient's plan and care discussed with my attending, Dr. Josie Garcias MD Internal Medicine PGY-3 Attending Provider Attestation/Addendum I have discussed and was present for the essential components of the history, physical examination, diagnosis, and treatment plan with the resident. I agree with the patient's care as documented by the resident and amended herein by me. Julien Galindo DO. Although this document has been carefully reviewed, there may still be some phonetic and other typographical errors. These errors are purely grammatical due to imperfections in the software program and should not be construed in any way to compromise the substance of the patient's medical care during this visit. Due to persistent, actually worsening ANGEL LUIS on CKD, renal nuc med scan ordered per nephrology recommendations
[2025-05-05] VITALS (8 sets, daily range): BP systolic 116–134; BP diastolic 61–73; PULSE 52–64; RESP 16–18; TEMP 35.9–36.3; O2SAT 96–99
[2025-05-05] MEDS: ACETAMINOPHEN 325 MG TABLET 650 MG PO ×2 (03:41→08:12)
[2025-05-05 06:31] LABS: Basophils # (Auto) 0.1 Thou/mm3 (0.0-0.2); Basophils % (Auto) 1 % (0-2.5); Eosinophils # (Auto) 0.4 Thou/mm3 (0.0-0.5); Eosinophils % (Auto) 3 % (0-10); Hematocrit 37.5 % (36.0-46.0); Hemoglobin 12.1 g/dL (12.0-16.0); Immature Granulocytes Auto 0.06 Thou/mm3 (0.00-0.00); Lymphocytes # (Auto) 2.5 Thou/mm3 (1.0-4.8); Lymphocytes % (Auto) 17 % (10-50); Mean Corpuscular HGB Conc 32.3 g/dl (31.0-37.0); Mean Corpuscular Hemoglobin 28.5 pg (25.0-35.0); Mean Corpuscular Volume 88 fL (80-100); Monocytes # (Auto) 0.8 Thou/mm3 (0.0-0.8); Monocytes % (Auto) 5 % (0-12); Neutrophils # (Auto) 10.7 Thou/mm3 (1.8-7.7); Neutrophils % (Auto) 74 % (37-80); Nucleated Red Blood Cell # 0.00 Thou/mm3 (0.00-0.00); Nucleated Red Blood Cell % 0 /100 WBC (0); Platelet Count 309 Thou/mm3 (140-440); RDW Standard Deviation 43.3 fL (36.4-46.3); Red Blood Count 4.24 Miln/mm3 (4.00-5.20); White Blood Count 14.5 Thou/mm3 (3.6-11.0)
[2025-05-05 06:56] LABS: Alanine Aminotransferase 12 U/L (10-49); Albumin, Serum 4.2 gm/dL (3.5-5.0); Albumin/Globulin Ratio 1.6 (1.2-2.2); Alkaline Phosphatase 79 U/L (46-116); Anion Gap 10 (7-16); Aspartate Amino Transferase 12 U/L (0-34); BUN/Creatinine Ratio 16 Ratio (12-20); Bilirubin,Total 0.4 mg/dL (0.3-1.2); Blood Urea Nitrogen 47 mg/dL (9-23); Calcium 9.8 mg/dL (8.3-10.6); Calcium (Corrected) 9.8 mg/dL (8.5-10.1); Carbon Dioxide 23.4 mMol/L (20.0-31.0); Chloride 103 mMol/L (98-107); Creatinine (Component) 2.9 mg/dL (0.6-1.3); Estimated Creatinine Clearance 23.5 mL/min (>60); Globulin 2.6 gm/dL (2.3-3.5); Glucose 84 mg/dL (74-106); Magnesium 2.6 mg/dL (1.6-2.6); Osmolality,Calculated 283 (275-295); Phosphorous 4.7 mg/dL (2.4-5.1); Potassium 5.2 mMol/L (3.4-5.1); Sodium 136 mMol/L (136-145); Total Protein 6.8 gm/dL (5.7-8.2); eGFR 19 See Note
[2025-05-05 06:58] LABS: Collection Type, Urine Clean Catch
[2025-05-05 07:10] LABS: HCG,Qualitative Serum Negative
[2025-05-05 07:28] LABS: Bacteria,Urine Rare; Bilirubin,Urine Negative (Negative); Blood,Urine 1+ (Negative); Clarity,Urine Clear (Clear/Hazy); Color,Urine Colorless (Lt Yel-Yel); Glucose, Urine Negative (Negative); Ketones,Urine Negative (Negative); Leukocyte Esterase,Urine Negative (Negative); Nitrite,Urine Negative (Negative); PH,Urine 6.5 (5.0-7.0); Protein,Urine 1+ (Neg - Trace); RBC,Urine 2 /hpf (0-3); Specific Gravity,Urine 1.008 (1.001-1.035); Squamous Epithelial Cell,Urine < 1 /hpf (0-5); Urobilinogen,Urine Negative mg/dL (0.0-1.0); WBC,Urine 1 /hpf (0-5)
--- NOTE | 2025-05-05 07:52 | PD.RESDS ---
Planned Discharge Date 05/05/25 DS: Providers Provider Date of admission: 05/01/25 07:53 Primary care physician: Physician No Primary/Family Admitting Provider: Anders Galindo DO Attending Provider on Admission: Anders Galindo DO Consults: 05/01/25 10:53 Consult to Cardiology Stat Comment: Chest pain Consulting Provider: Estefanía Bell Consult to Nephrology Stat Comment: ANGEL LUIS Consulting Provider: Alek Bose Attending Provider on DC: Joy Garcias MD Discharging Provider: Joy Garcias MD DS: Diagnosis Problem List Completed Was Problem List Reviewed/Reconciled?: Yes Hospital Course Hospital Course Hospital course: A 49-year-old female patient with past medical history of poorly controlled hypertension, chronic kidney disease, presented to the ED due to chest pain that was centrally located with no radiation. The pain was reproducible. On presentation her blood pressure was 230/145. Troponin was mildly elevated initially at 0.077, however down trended. Consultation to the U was sent and it was concluded that it was non-STEMI type II and no need for intervention at this time. Patient was also found to have serum creatinine level of 2.9 and previous labs in 2023 showed serum creatinine baseline at 1.8. For that reason a consultation to the car varnisher Dr. Bose was sent she recommended to slowly control her blood pressure over 48 hours and to perform we started the patient on spironolactone, metoprolol, and hydralazine as the patient was not taking any blood pressure medication at home and has never followed up with a PCP before for her blood pressure. During his stay her serum creatinine noticed to be uptrending and it peaked at 2.9. Nuclear scan was done and showed severe impairment of both kidneys. Patient was cleared from nephrology standpoint to follow-up in outpatient settings and to repeat labs. Patient was instructed to religiously take her blood pressure medications and to follow-up strictly with her primary care physician and with a car varnisher at this time patient deemed to be clinically stable for discharge and follow-up outpatient and was given the following instructions: Discharge instructions: ? Follow-up with your primary care physician within 1 week from discharge. If you dont have a PCP you can follow up with us at the [facility] Medical office building Phone:? , Address: [address], [place] [address]. ? Use medications as prescribed ? You will need to follow-up with a car varnisher (kidney doctor) Dr Bose to further manage your chronic kidney disease. , Address?[address] [place] [address]? ? You will need to repeat blood work to monitor your potassium level and your kidney function ? That is very important to control blood pressure to prevent further damage to your kidneys and also to prevent other complications such as heart disease and strokes ? In case of worsening of your condition please return to the ED as soon as possible ? You will need to measure your blood pressure at least 2 times a day, keep them in a record and discuss the readings with you primary care physician. Discharge diagnosis #Non-STEMI type II #Hypertension emergency #ANGEL LUIS on CKD #Hyperlipidemia #Prediabetes #Leukocytosis unspecified - Patient's plan and care discussed with my attending, Dr. Galindo_ Joy Garcias MD Internal Medicine PGY-3 Status at Discharge Functional status at discharge: independent ambulation Overall status at discharge: patient is back to baseline Time Spent with Patient Time attestation: Total time spent providing and/or coordinating discharge services: Time spent: Greater than 30 minutes Exam Vital Signs Temp Pulse Resp BP Pulse Ox O2 Del Method 97.1 F 52 L 18 116/66 98 Room Air 05/05/25 11:56 05/05/25 11:59 05/05/25 11:56 05/05/25 11:56 05/05/25 11:56 05/05/25 11:56 Narrative Exam GEN: AOx3, able to speak full sentences HEENT: NC/AC, PERRLA, oral mucosa moist, neck supple CVS: RRR, S1-S2 present, no murmurs appreciated RESP: CTAB GI: soft,non distended, non tender, NBS MSK: able to move all 4 limbs, trace lower extremity edema SKIN: warm and dry PRODUCT MARKETING DIRECTOR: CN II-XII and Sensation grossly intact. Discharge Plan Plan Patient Disposition: HOME (Self Care) Patient condition on transfer: Benefits outweigh risks Care Plan Goals: Discharge instructions: ? Follow-up with your primary care physician within 1 week from discharge. If you dont have a PCP you can follow up with us at the [facility] Medical office building Phone:? , Address: [address], [place] [address]. ? Use medications as prescribed ? You will need to follow-up with a car varnisher (kidney doctor) Dr Bose to further manage your chronic kidney disease. , Address?[address] [address]? ? You will need to repeat blood work to monitor your potassium level and your kidney function ? That is very important to control blood pressure to prevent further damage to your kidneys and also to prevent other complications such as heart disease and strokes ? In case of worsening of your condition please return to the ED as soon as possible ? You will need to measure your blood pressure at least 2 times a day, keep them in a record and discuss the readings with you primary care physician. Prescriptions/Referrals Prescriptions/Med Rec: New hydralazine 25 mg tablet 25 mg PO TID 14 Days Qty: 42 0RF Rx Instructions: Take one tablet by mouth three times a day spironolactone 25 mg tablet 25 mg PO QDAY 14 Days Qty: 14 0RF Rx Instructions: Take one tablet by mouth every day metoprolol succinate 25 mg capsule,sprinkle,ER 24hr 25 mg PO QDAY 7 Days Qty: 7 0RF (DME) blood pressure test kit-medium Kit See Rx Instructions .Route Qty: 1 0RF Rx Instructions: As directed Discontinued cyclobenzaprine 10 mg tablet 10 mg PO TID Qty: 20 0RF Referrals: No Primary/Family,Physician [Primary Care Provider] - Patient/Caregiver Discharge Instructions Education Materials: Kidney Disease Potassium in Diet, Kidney Disease Avoid High Sodium, Malignant Hypertension Dc Print Language: Upper Sorbian Stand Alone Forms: Clarissa Award Info., Patient Portal Info Letter Discharge Order Discharge Orders: Discharge (Routine); Ordered 05/05/25 Ordered By: Joy Garcias Quality Discharge Quality Measures VTE prophylaxis Attestestation Attestation I have discussed and was present for the essential components of the discharge history, physical examination, diagnosis, and discharge treatment plan with the resident. I agree with the patient's discharge care as documented by the resident and amended herein by me. Julien Galindo DO. Concern for cardiac event per cardiology, the patient's creatinine did improve, will need outpatient follow-up with nephrology for further monitoring and evaluation. The patient was stable, afebrile, tolerating p.o. intake and ambulatory at time of discharge home The patient understood all discharge instructions, all questions were answered satisfactorily. The patient was instructed to return to the Emergency Department is symptoms worsened or persisted. Although this document has been carefully reviewed, there may still be some phonetic and other typographical errors. These errors are purely grammatical due to imperfections in the software program and should not be construed in any way to compromise the substance of the patient's medical care during this visit.
[2025-05-05] MEDS: METOPROLOL TARTRATE 25 MG TABLET 50 MG PO (08:14)
--- NOTE | 2025-05-05 09:57 | PD.RESPRO ---
Documentation for date of: 05/05/25 Subjective Subjective Interval history: Ms Salas is a 49 yo woman with PMH of poorly controlled HTN (not taking medications), CKD (not followed by a dry heat cabinet attendant) who presented to the ED with acute onset non radiating chest pain in the center of the chest, worse with inspiration, not associated with exertion, no orthopnea, no LE edema, no palpitations. Pt reports having increased stress recently, since she has recently from her . She does not have any children. She states that she had been diagnosed with HTN about 1-2 years ago but was not taking any medications. She states that about 2 days prior to coming to the hospital she had eaten some licorice candies. She states that she occationally takes APAP for pain, but denies chronic NSAID use. 05/01/2025: Nephrology consulted, for ANGEL LUIS on CKD, HTN emergency with SBP to 200s. 05/02/2025 Patient seen and examined at bedside. reaffirms that she was not taking any antihypertensives at home, intermittent APAP use, no nsaids, reports no hx of DM. Lungs clear to auscultation bilaterally. trace edema bilaterally in lower extremities. 05/03/2025 patient seen and examined at bedside, sitting at the edge of the bed ready for breakfast. She states that she has some increased nasal congestion. BP remains elevated to 160s, heart tachycardic to 110s, lungs ctab, trace edema bilateral LE, no abdominal pain. Cr 2.6 from 2.4, A1c 5.7. rec d/c amlodipine, cont spirinalactone 25 bid, hydralazine 24 TID and add metop tartrate 50 BID. 05/04/2025. Patient seen and examined at bedside, Laying comfortably in bed following breakfast. She states that she has no new complaints but that she would like to address her health issues. Her SBP 130s to 150s, HR wnl, continues on amlodipine 10, spirinolactone 25 QD, and Metoprolol tartrate 50 BID, Holding hydral 25 mg TID per primary team. Cr 3.0 from 2.6 BUN inc 45 from 42. Uric acid elevated. WBC remains elevated at 14. CKD likely given elevated PTH 177, vit D pending, Pt became tearful and shared that she is stressed about a lot of things and that she does want to resolve her health issues. Query ATN, Plan for NM renal function and flow. 05/05/2025: Pt had family visiting yesterday evening, seen walking around on floor, this morning pt was taken for NM scan. Cr 2.9 from 3.0, BUN 47 from 45. K 5.2 from 4.9. bradycardic to 50s, decreased metop to 25 bid ok to d/c with nephro follow up, NM renal scan with nl renal flow and severely impaired bilateral renal function, persistent activity on both right and left sides at 20 minutes remains at 80% Exam Vital Signs Temp Pulse Resp BP Pulse Ox O2 Del Method 97.3 F 56 L 18 118/67 99 Room Air 05/05/25 07:58 05/05/25 08:14 05/05/25 07:58 05/05/25 08:14 05/05/25 07:58 05/05/25 07:58 Narrative Exam GENERAL: no acute distress, AAO x3, sitting at the edge of bed. HEENT: Head AT/ NC. Mucous membranes moist. PERRL. CARDIOVASCULAR: Bradycardic, regular rhythm Normal S1/S2, No m/r/g. scant edema of bilateral LEs. RESPIRATORY: CTAB. No wheezing, rhonchi, crackles., intermittent dry cough GASTROINTESTINAL: Abdomen soft, non tender no palpable masses. Bowel sounds present MUSCULOSKELETAL:? No cyanosis or edema, no visible joint swelling. NEUROLOGICAL: CN II-XII grossly intact. No focal deficits. Sensation intact, symmetric. PSYCHIATRIC: Awake and alert, SKIN: raised pink and skin colored plaques on extensor surfaces of elbows and behind ears, and on near scalp, no jaundice, normal turgor. Objective Labs 05/05/25 05:41 05/05/25 05:41 Labs: Laboratory Results - last 24 hr 05/05/25 05/05/25 05:41 06:33 WBC 14.5 H RBC 4.24 Hgb 12.1 Hct 37.5 MCV 88 MCH 28.5 MCHC 32.3 RDW Std Deviation 43.3 Plt Count 309 Neut % (Auto) 74 Lymph % (Auto) 17 [facility] % (Auto) 5 Eos % (Auto) 3 Baso % (Auto) 1 Neut # (Auto) 10.7 H Lymph # (Auto) 2.5 [facility] # (Auto) 0.8 Eos # (Auto) 0.4 Baso # (Auto) 0.1 Immature Gran # (Auto) 0.06 H Absolute Nucleated RBC 0.00 Immature Gran % 0 Nucleated RBC % 0 Sodium 136 Potassium 5.2 H Chloride 103 Carbon Dioxide 23.4 Anion Gap 10 BUN 47 H Creatinine 2.9 H Estim Creat Clear Calc 23.5 L eGFR 19 L BUN/Creatinine Ratio 16 Glucose 84 Calculated Osmolality 283 Calcium 9.8 Corrected Calcium 9.8 Phosphorus 4.7 Magnesium 2.6 Total Bilirubin 0.4 AST 12 ALT 12 Alkaline Phosphatase 79 Total Protein 6.8 Albumin 4.2 Globulin 2.6 Albumin/Globulin Ratio 1.6 HCG, Qual Negative Ur Collection Type Clean Catch Urine Color Colorless A Urine Clarity Clear Urine pH 6.5 Ur Specific [place] 1.008 Urine Protein 1+ A Urine Glucose (UA) Negative Urine Ketones Negative Urine Blood 1+ A Urine Nitrite Negative Urine Bilirubin Negative Urine Urobilinogen (Auto) Negative Ur Leukocyte Esterase Negative Urine RBC 2 Urine WBC 1 Ur Squamous Epith Cells < 1 Urine Bacteria Rare Quality Measures Quality Measures VTE prophylaxis Assessment & Plan Assessment Current Active Medications: Generic Name Dose Route Start Last Admin Trade Name Freq PRN Reason Stop Dose Admin Acetaminophen 650 mg 05/01/25 15:45 05/05/25 08:12 Acetaminophen 325 Mg Tablet PO 05/31/25 15:44 650 mg Q4HR PRN Administration Fever >100 or pain 1-3 Amlodipine Besylate 10 mg 05/02/25 09:00 05/05/25 08:12 Amlodipine Besylate 5 Mg Tablet PO 06/01/25 08:59 10 mg QDAY LASHAE Administration Calcitriol 0.25 mcg 05/04/25 09:00 05/05/25 08:12 Calcitriol 0.25 Mcg Capsule PO 06/03/25 08:59 0.25 mcg QDAY LASHAE Administration Hydralazine HCl 10 mg 05/01/25 16:09 05/02/25 03:38 Hydralazine Inj 20 Mg/Ml Vial IVP 10 mg Q1H PRN Administration SBP>180mmHg Hydralazine HCl 25 mg 05/02/25 14:00 05/03/25 05:23 Hydralazine Hcl 25 Mg Tablet PO 06/01/25 13:59 25 mg TID LASHAE Administration Metoprolol Tartrate 50 mg 05/03/25 09:00 05/05/25 08:14 Metoprolol Tartrate 25 Mg Tablet PO 06/02/25 08:59 50 mg BID LASHAE Administration Pharmacy Consult 1 each 05/01/25 12:40 Pharmacy Renal Dose Adjustment 1 Ea XX 05/31/25 12:39 PRN PRN CONSULT Spironolactone 25 mg 05/04/25 09:00 05/05/25 08:14 Spironolactone 25 Mg Tablet PO 06/03/25 08:59 Not Given QDAY LASHAE Plan Ms. Salas is a year-old female patient with past medical history of hypertension poorly controlled, chronic kidney disease with no follow-up, presented to the ED due to acute onset of chest pain for 1 day. Reported that the chest pain centrally located with no radiation. Patient was found to have elevated troponins and elevated serum creatinine admitted for non-STEMI workup and ANGEL LUIS treatment. Nephrology consulted for ANGEL LUIS on CKD. Cr contines to uptrend, query ATN, NM renal flow and function scan shows normal renal flow but severely impaired BL renal fxn #ANGEL LUIS on CKD Stage 4 #query ATN #query 2/2 uncontrolled HTN - renal US with bilatteral cortical thinning on 05/02 Cr 2.4 from 2.9 BUN 32 from 34, K wnl , likely prerenal on 05/03 Cr 2.6 from 2.4 BUN 42 from 32, likely secondary to BP fluctuations and HTN urgency on 05/04 Cr 3.0 from 2.6, BUN 45 from 42, PTH elevated, Vit D Pending, query ATN, pending NM renal scan. on 05/05 Cr 2.9 from 3.0, BUN 47 from 45. Vit D 25 wnl, NM scan taken pending read, UA bland with 1+ Protein 1+ blood. Plan - strict i and o - encourage PO intake - avoid nephrotoxic agents - BP is better controlled today - cont with calcitrol 0.25 QD for Vit D low. - NM renal scan read Normal flow right and left kidneys Severely impaired bilateral renal function, persistent activity on both right and left sides at 20 minutes remains at 80% - recommend f/u with [facility] - ok to d/c with follow up with dry heat cabinet attendant outatient. #HTN emergency- resolved #HTN- better controlled pt reports not taking antihypertensives at home pt reports increased stress pt reports eating licorice candies during the past few days on 05/03 tachycardic to 110s, BP remains elevated to 160s on 05/04 tachycardia resolved, HR wnl, BP remains elevated 130s-150s. on 05/05 BP better controlled 110s- 130s, bradycardic to 50s PLAN: - advise pt to avoid licorice foods and candies. (see this publication about licorice and HTN association doi: 10.3390/ev98915361. PMID: 79343229; PMCID: [id number].) - cont per primary team amlodipine 10 mg qd - decrease metoprolol tartrate 25 BID from 50 BID - holding per primary team hydralazine 25 TID - cont spirinolactone 25 QD #Asymptomatic Bradycardia likely 2/2 metop #NSTEMI type 1 vs type 2 vs chostochondritis - CARDS consulted, rec outpatient f/u #Leukocytosis - remains elevated at 14-- no source #query DM- ruled out #prediabetes -A1c 5.7 (05/02/2025) #rhinorhea - rec azelastine nasal spray for symptoms #HLD triglycerides and cholesterol and LDL elevated. - consider statin #Hyperuricemia #query gout? #Psoriasis pt has plaques on extensor surfaces of upper extrem and behind ears. Management as per primary team Plan discussed with nephrology attending Dr. Lidya Roca MD Internal Medicine PGY- Attending Provider Attestation/Addendum Patient seen and examined with resident physician Dr. Roca. Note reviewed, agree with findings and recommendations. Patient presented with uncontrolled hypertension, ANGEL LUIS. Suspect patient has hypertensive nephrosclerosis for some time. Kidney ultrasound showed cortical thinning. PTH at 177 suggestive of underlying CKD. 2017 her Creatinine was 1.1. Spoke to primary team-continue with Aldactone. Added metoprolol for better blood pressure control. 05/04/2025 creatinine continues to be elevated. Suspect patient in ATN from hypertensive urgency when she presented. Will repeat urinalysis. If significant amount of blood or protein will plan for biopsy. On admission urine protein/creatinine 2.5 g Renal scan ordered to check the flow and function of the kidneys 05/05/2025 renal scan showed ATN. Patient will be discharged today on low-dose spironolactone. Will follow-up with me in my office in 1 to 2 weeks
--- NOTE | 2025-05-05 14:24 | PC.SS ---
rounding note: Patient to d/c home today. No d/c needs.
[2025-05-10 06:58] LABS: Vitamin D,1,25 (OH)2,Total 15 pg/mL (18-72); Vitamin D2, 1,25 (OH)2 <8 pg/mL; Vitamin D3, 1,25 (OH)2 15 pg/mL
== END 2025-05-05 15:23 | disposition home or self-care (01) | DRG 469 ==
LOC: SERX 05-01 06:01 → SERHOLD 05-01 08:11 → S3NX 05-03 06:31
PROVIDERS: Internal Medicine; Physician Assistant; Student in an Organized Health Care Education/Training Program; Admitting Provider Student in an Organized Health Care Education/Training Program; Emergency Provider Emergency Medicine; Visit Provider Student in an Organized Health Care Education/Training Program
DX: N17.9 Acute kidney failure, unspecified (principal); N18.4 Chronic kidney disease, stage 4 (severe); I12.9 Hypertensive chronic kidney disease with stage 1 through stage 4 chronic kidney disease, or unspecified chronic kidney disease; Z91.148 Patient's other noncompliance with medication regimen for other reason; I16.1 Hypertensive emergency; D72.829 Elevated white blood cell count, unspecified; I21.A1 Myocardial infarction type 2; E78.5 Hyperlipidemia, unspecified; R73.03 Prediabetes; Z63.5 Disruption of family by separation and divorce; Z79.899 Other long term (current) drug therapy; L40.9 Psoriasis, unspecified
CPT/HCPCS: 36415; 71045; 76770; 78708; 80053; 80061; 81001; 82306; 82550; 82570; 82652; 83036; 83735; 83880; 83970; 84100; 84133; 84156; 84300; 84443; 84484; 84550; 84703; 85025; 85610; 85730; 93005; 93225; 96374; 96375; 99284; A9562; J0131; J0360; J3360; A9270

== ENCOUNTER 2025-05-13 14:55 | Outpatient (AMB) | payer MEDICAID, SELFPAY ==
[2025-05-13 15:10] VITALS: BP 123/76; PULSE 72; RESP 17; TEMP 36.7; O2SAT 97; BMI 42.0
--- NOTE | 2025-05-13 15:10 | ACNOTE_ITS ---
Vital Signs 05/13/25 15:10 Height 1.5 m Height Method Measured Weight 94.404 kg Weight Measurement Method Standing Scale BMI 42.0 BP 123/76 Blood Pressure Source Automatic Cuff Blood Pressure Location Right Upper Arm Position Sitting Respiration 17 Pulse 72 Pulse Source Monitor Temp 98.0 F Temp Source Temporal Artery Scan Pulse Oximetry (%) 97 Oxygen Delivery Method Room Air Allergies/Meds Allergies & Medications Allergies No Known Allergies Allergy (Verified 05/20/25 15:19) Medication Reconciliation blood pressure test kit-medium #1 ea 05/05/25 [Rx Confirmed 05/20/25] hydralazine 25 mg tablet 25 mg PO TID 1 month #90 tabs 05/13/25 [Rx Confirmed 05/20/25] metoprolol succinate 25 mg tablet,extended release 24 hr 25 mg PO QDAY 30 days #30 tabs 05/13/25 [Rx Confirmed 05/20/25] atorvastatin 40 mg tablet 40 mg PO QHS #30 tabs 05/20/25 [Rx] tirzepatide 2.5 mg/0.5 mL subcutaneous pen injector (Mounjaro) 2.5 mg (0.5 mL) subcut QWEEK #2 mL 05/20/25 [Rx] MA Intake Visit Data Collection New Patient or Established: Established Patient (seen at [facility] within 3 years) Reason for Visit:: HOSPITAL FOLLOW UP Pain Present Currently: Yes Pain Location: Chest Pain scale:: 5 Rooming House Operator Required: No PCP or OBGYN visit in last 3 months: Yes Date of Last PCP or OBGYN visit: 05/05/25 Hx Now: No Do You Feel Safe at Home: Yes Authorities Contacted: N/A Smoking Status Smoking Status: Never smoker Immunization / Flu Flu Vaccine in the Last 12 Months: No Flu Vaccine Exclusion Criteria: Refused by Patient Past Medical History Past Medical History NEUROLOGIC: Negative Neurological Disorders CARDIAC: Positive Cardiac Disorders and Hypertension; Negative Myocardial Infarction, Cardiac Arrhythmia, Atrial Fibrillation, Angina, Heart Murmur, Coronary Artery Disease, Atherosclerotic Heart Disease, Peripheral Vascular Disease, Hypercholesterolemia, Aneurysm, Congestive Heart Failure, Congenital Heart Disease, Valvular Heart Disease, Rheumatic Fever, Cardiomyopathy, Edema, Pericarditis, Cellulitis, Deep Vein Thrombosis or Varicose Veins RESPIRATORY: Negative Chronic Obstructive Pulmonary Disease (COPD) GASTROINTESTINAL: Positive Obesity; Negative Gastrointestinal Disorders, Cirrhosis, Pancreatitis, Celiac Disease, Gall Bladder Disease, Gastrointestinal Bleed, Esophageal Varices, Gross's Esophagus, Colitis, Ulcerative Colitis, Diverticulitis, Diverticulosis, Ulcer, Irritable Bowel, Crohn's Disease, Obstructive Bowel, Hiatal Hernia, Hemorrhoids or Gastroesophageal Reflux Disease GENITOURINARY: Negative Genitourinary Disorders, Renal Disease, Kidney Stones, Polycystic Kidney Disease, Neurogenic Bladder, Inguinal Hernia or Dialysis ENT: Negative Cataracts, Glaucoma, Blind, Retinal Detachment, Macular Degeneration, Ear Infection, Deafness or Eye Prosthesis ENDOCRINE: Negative Endocrine Disorders, Diabetes Mellitus Type 1, Diabetes Mellitus Type 2, Hypoglycemia, Morgan's Syndrome, Garza's Disease, Hyperthyroidism, Hypothyroidism, Parathyroid Disease, Pituitary Disease, Systemic Lupus Erythematosus, Syndrome of Inappropriate Antidiuretic Hormone (S IADH), Adrenal Disease or Graves' Disease HEMATOLOGIC: Negative Blood Disorders, Anemia, Leukemia, Hemophilia, Thalassemia, Sickle Cell Disease or Clotting Problems OTHER HISTORY: Negative Autoimmune Disease, Anesthesia Reactions, Organ Transplant, MRSA, Clostridium Difficile or Cancer Family History FAMILY HISTORY: Positive Family Cardiac Disorders; Negative Family Psychiatric Problems, Family Respiratory Disorders, Family Gastrointestinal Problems, Family Cancer, Family Surgery or Family Anesthesia Reaction Surgical History SURGICAL: Negative Pacemaker or Organ Transplant Social History SMOKING STATUS: Smoking status: Never smoker ALCOHOL: Alcohol Intake: Never HOUSING: Housing: House LIVES WITH: Lives With: Family Patient Portal Questionaires PHQ-9 PHQ-2 Over the last 2 weeks, how often have you been bothered by any of the following problems? 1. Little interest or pleasure in doing things: not at all 2. Feeling down, depressed, or hopeless: not at all Total score: 0 PHQ-9 3. Trouble falling or staying asleep, or sleeping too much: Not at all 4. Feeling tired or having little energy: Not at all 5. Poor appetite or overeating: Not at all 6. Feeling bad about yourself - or that you are a failure or have let yourself or your family down: Not at all 7. Trouble concentrating on things, such as reading the newspaper or watching television: Not at all 8. Moving or speaking so slowly that other people could have noticed? - Or the opposite - being so fidgety or restless that you have been moving around a lot more than usual: not at all 9. Thoughts that you would be better off or of hurting yourself in some way: Not at all Total score: 0 If you checked off any problems, how difficult have these problems made it for you to do your work, take care of things at home, or get along with other people?: not difficult at all Source: Developed by Drs. Emil Monge, Adeola Cerna, Nilo Washington and colleagues, with an educational sangeeta from [employer]. Social History Living Situation History Housing: House Tobacco History Smoking Status: Never smoker Alcohol History Alcohol Intake: Never Domestic Abuse History Do You Feel Safe at Home: Yes Review of Systems Report any current symptoms Only answer those that you have currently: Past Medical History Past Medical History Have you ever been diagnosed with any of the following: Cardiology Problems Myocardial Infarction: No Cardiac Arrhythmia: No Atrial Fibrillation: No Angina: No Heart Murmur: No Coronary Artery Disease: No Atherosclerotic Heart Disease: No Peripheral Vascular Disease: No Hypercholesterolemia: No Aneurysm: No Congestive Heart Failure: No Congenital Heart Disease: No Valvular Heart Disease: No Rheumatic Fever: No Cardiomyopathy: No Edema: No Pericarditis: No Cellulitis: No Deep Vein Thrombosis: No Hypertension: Yes Varicose Veins: No Respiratory Problems Chronic Obstructive Pulmonary Disease (COPD): No Stomache/Intestinal Problems Cirrhosis: No Pancreatitis: No Celiac Disease: No Gall Bladder Disease: No Gastrointestinal Bleed: No Esophageal Varices: No Gross's Esophagus: No Colitis: No Ulcerative Colitis: No Diverticulitis: No Diverticulosis: No Ulcer: No Irritable Bowel: No Crohn's Disease: No Obstructive Bowel: No Hiatal Hernia: No Hemorrhoids: No Gastroesophageal Reflux Disease: No Obesity: Yes Genital/Urinary Problems Renal Disease: No Kidney Stones: No Polycystic Kidney Disease: No Neurogenic Bladder: No Inguinal Hernia: No Dialysis: No Head,Eye,Nose,Throat Problems Cataracts: No Glaucoma: No Blind: No Retinal Detachment: No Macular Degeneration: No Chronic Ear Infections: No Deafness: No Eye Prosthesis: No Endocrine Problems Diabetes Mellitus Type 1: No Diabetes Mellitus Type 2: No Hypoglycemia: No Morgan's Syndrome: No Edgardo's Disease: No Hyperthyroidism: No Hypothyroidism: No Parathyroid Disease: No Pituitary Disease: No Systemic Lupus Erythematosus: No Syndrome of Inappropriate Antidiuretic Hormone: No Adrenal Disease: No Graves' Disease: No Blood Problems Anemia: No Leukemia: No Hemophilia: No Thalassemia: No Sickle Cell Disease: No Clotting Problems: No Other Problems Autoimmune Disease: No Anesthesia Reactions: No Organ Transplant: No MRSA: No Clostridium Difficile: No Cancer: No Surgical History Pacemaker: No History of Present Illness HPI Narrative HPI:A 49-year-old female patient with past medical history of poorly controlled hypertension, prediabetes, morbid obesity, hyperlipidemia, questionable psoriasis, CKD, presented to the clinic after she was recently discharged from the hospital when she was admitted due to emergency hypertension, ANGEL LUIS on CKD. 05/13/2025, patient came to follow-up after discharge. She reported significant improvement of her symptoms. She reported that she has been taking her medications as prescribed and her blood pressure under well-controlled.. When she was discharged she was instructed to repeat her CMP to monitor her potassium level and also serum creatinine. Upon discharge it was noticed that her serum potassium was 5.2 and her serum creatinine is 2.9. Today she also reported that she has pain bilaterally on her thigh worsening whenever she walks. She mentions that the pain also sometimes can be associated with tingling on the lateral side and the front side of her thighs. She denied any claudication, skin color changes, or coldness. She also reported that she has some scaly skin rash on her extensor surfaces and also on the back of her ear. When she was at the hospital she was informed that could be psoriasis. She reported that she has been under a lot of stress recently as she has from her and she had to move back to live with her parents Home medications:Hydralazine 25 mg 3 times daily, metoprolol 25 mg daily, atorvastatin 40 mg nightly, PMH:as above Social hx: Recently from her , going through a lot of stressors. Alcohol:Denied Tobacco:Denied Illicit drugs:Denied Allergies:NKA Review of Systems Review of Systems Systems Reviewed: All systems reviewed, normal except as documented Objective/Exam Narrative Physical exam: GEN: AOx3, obese, able to speak full sentences HEENT: NC/AC, PERRLA, oral mucosa moist, neck supple CVS: RRR, S1-S2 present, no murmurs appreciated RESP: CTAB GI: soft,non distended, non tender, NBS MSK: able to move all 4 limbs, no lower extremity edema SKIN: Silver scaly lesions on the extensor surface of the elbow, diameter of 2 cm circular in shape, no excoriation, similar lesion in the back of her ear. LEAD ELECTRICAL CONTROLS ENGINEER: Flat mood, CN II-XII and Sensation grossly intact. Assessment & Plan Diagnosis / Problem List (1) Acute on chronic renal insufficiency: Status: Acute Assessment & Plan: Patient reported strict blood pressure control she reported that most of the time her blood pressure at this time 140 mmHg. She is taking her hydralazine and metoprolol religiously. Denied any weakness or or GI symptoms that can be as a result of hyperkalemia. Plan: ? Repeat CMP and follow-up next week. ? Follow-up with the progressive care manager Dr. Bose (2) Malignant hypertension: Status: Acute Assessment & Plan: Her blood pressure under control, she reported that she has been tolerating blood pressure medications well. Denied any episodes of dizziness, headache, or syncopal episode and denied any palpitation. Plan: ? Continue hydralazine 50 mg p.o. 3 times daily ? Continue metoprolol 25 mg XL daily ? Continue daily monitoring for blood pressure ? Will consider adding JUAN JOSÉ inhibitor for blood pressure control after the patient see the progressive care manager. ? No refill refill for her medication is needed at this time. (3) Psoriasis: Status: Acute Assessment & Plan: Typical Psoriatec skin lesions in both elbows were noticed. Patient going under a lot of stressors recently. Plan: ? At this time avoiding anxiety and stress was recommended, to be referred for a plastics scientist next visit. (4) Meralgia paresthetica of both lower extremities: Status: Acute Assessment & Plan: She mentions that the pain also sometimes can be associated with tingling on the lateral side and the front side of her thighs. She denied any claudication, skin color changes, or coldness. Pulse intact bilaterally. Patient was noticed to be wearing very tight clothes specifically pants. She mentions that most of her clothes are tight. Plan: ? Patient was instructed to wear loose clothes and avoid tight pants. ? Instructed to use Tylenol for pain, and to follow-up after 1 week. Orders: Orders Comprehensive Metabolic Panel 1 Week CBC Auto Diff Post-Transfusion 1 Week Referrals Nephrology I10 - Essential (primary) hypertension, N18.9 - Chronic kidney disease, unspecified, N28.9 - Disorder of kidney and ureter, unspecified Office Procedures [facility] Level of Care Nursing/Assessment Patient Status: Established Patient Nursing Assessment/Reassessment: Medication Reconciliation, Update PMH in EMR and Vital Signs Coordination of Care: Complex Care and Chronic Disease 1-5, Education Complex Pt/Fam and Consent,records obtained, informed consent Established Patient Charge Established Patient Point Assignment: 80 Established Patient Point Charge: EP Level 3 (80-115)
== END 2025-05-13 16:06 | disposition home or self-care (01) ==
LOC: HODAHC 14:55
PROVIDERS: Supervising Provider Internal Medicine; Visit Provider Student in an Organized Health Care Education/Training Program
DX: I12.9 Hypertensive chronic kidney disease with stage 1 through stage 4 chronic kidney disease, or unspecified chronic kidney disease (principal); N18.9 Chronic kidney disease, unspecified; L40.9 Psoriasis, unspecified; G57.13 Meralgia paresthetica, bilateral lower limbs
CPT/HCPCS: 99213; G0463

== ENCOUNTER 2025-05-20 15:12 | Outpatient (AMB) | payer MEDICAID, SELFPAY ==
[2025-05-20 15:18] VITALS: BP 127/75; PULSE 75; RESP 19; TEMP 37; O2SAT 98; BMI 41.8
--- NOTE | 2025-05-20 15:18 | ACNOTE_ITS ---
Vital Signs 05/20/25 15:18 Height 1.5 m Height Method Stated Weight 94.007 kg Weight Measurement Method Standing Scale BMI 41.8 BP 127/75 Blood Pressure Source Automatic Cuff Blood Pressure Location Left Upper Arm Position Sitting Respiration 19 Pulse 75 Pulse Source Monitor Temp 98.6 F Temp Source Oral Pulse Oximetry (%) 98 Oxygen Delivery Method Room Air Allergies/Meds Allergies & Medications Allergies No Known Allergies Allergy (Verified 05/20/25 15:19) Medication Reconciliation blood pressure test kit-medium #1 ea 05/05/25 [Rx Confirmed 05/20/25] hydralazine 25 mg tablet 25 mg PO TID 1 month #90 tabs 05/13/25 [Rx Confirmed 05/20/25] metoprolol succinate 25 mg tablet,extended release 24 hr 25 mg PO QDAY 30 days #30 tabs 05/13/25 [Rx Confirmed 05/20/25] atorvastatin 40 mg tablet 40 mg PO QHS #30 tabs 05/20/25 [Rx] tirzepatide 2.5 mg/0.5 mL subcutaneous pen injector (Mounjaro) 2.5 mg (0.5 mL) subcut QWEEK #2 mL 05/20/25 [Rx] MA Intake Visit Data Collection New Patient or Established: Established Patient (seen at [facility] within 3 years) Seen by Clinical Staff ONLY (RN/MA): No Pain Present Currently: No Pain scale:: 0 Pain Scale Used: [place]/Numerical PCP or OBGYN visit in last 3 months: Yes Do You Feel Safe at Home: Yes Authorities Contacted: N/A Smoking Status Smoking Status: Never smoker Immunization / Flu Flu Vaccine in the Last 12 Months: No Flu Vaccine Exclusion Criteria: No Exclusion Criteria Past Medical History Past Medical History NEUROLOGIC: Negative Neurological Disorders CARDIAC: Positive Cardiac Disorders and Hypertension; Negative Myocardial Infarction, Cardiac Arrhythmia, Atrial Fibrillation, Angina, Heart Murmur, Coronary Artery Disease, Atherosclerotic Heart Disease, Peripheral Vascular Disease, Hypercholesterolemia, Aneurysm, Congestive Heart Failure, Congenital Heart Disease, Valvular Heart Disease, Rheumatic Fever, Cardiomyopathy, Edema, Pericarditis, Cellulitis, Deep Vein Thrombosis or Varicose Veins RESPIRATORY: Negative Chronic Obstructive Pulmonary Disease (COPD) GASTROINTESTINAL: Positive Obesity; Negative Gastrointestinal Disorders, Cirrhosis, Pancreatitis, Celiac Disease, Gall Bladder Disease, Gastrointestinal Bleed, Esophageal Varices, Gross's Esophagus, Colitis, Ulcerative Colitis, Diverticulitis, Diverticulosis, Ulcer, Irritable Bowel, Crohn's Disease, Obstructive Bowel, Hiatal Hernia, Hemorrhoids or Gastroesophageal Reflux Disease GENITOURINARY: Negative Genitourinary Disorders, Renal Disease, Kidney Stones, Polycystic Kidney Disease, Neurogenic Bladder, Inguinal Hernia or Dialysis ENT: Negative Cataracts, Glaucoma, Blind, Retinal Detachment, Macular Degeneration, Ear Infection, Deafness or Eye Prosthesis ENDOCRINE: Negative Endocrine Disorders, Diabetes Mellitus Type 1, Diabetes Cassandra itus Type 2, Hypoglycemia, Wycombe's Syndrome, Lamar's Disease, Hyperthyroidism, Hypothyroidism, Parathyroid Disease, Pituitary Disease, Systemic Lupus Erythematosus, Syndrome of Inappropriate Antidiuretic Hormone (SIADH), Adrenal Disease or Graves' Disease HEMATOLOGIC: Negative Blood Disorders, Anemia, Leukemia, Hemophilia, Thalassemia, Sickle Cell Disease or Clotting Problems OTHER HISTORY: Negative Autoimmune Disease, Anesthesia Reactions, Organ Transplant, MRSA, Clostridium Difficile or Cancer Family History FAMILY HISTORY: Positive Family Cardiac Disorders; Negative Family Psychiatric Problems, Family Respiratory Disorders, Family Gastrointestinal Problems, Family Cancer, Family Surgery or Family Anesthesia Reaction Surgical History SURGICAL: Negative Pacemaker or Organ Transplant Social History SMOKING STATUS: Smoking status: Never smoker ALCOHOL: Alcohol Intake: Never HOUSING: Housing: House LIVES WITH: Lives With: Family Patient Portal Questionaires PHQ-9 PHQ-2 Over the last 2 weeks, how often have you been bothered by any of the following problems? 1. Little interest or pleasure in doing things: not at all PHQ-9 8. Moving or speaking so slowly that other people could have noticed? - Or the opposite - being so fidgety or restless that you have been moving around a lot more than usual: not at all Source: Developed by Drs. Emil Monge, Adeola Cerna, Nilo Washington and colleagues, with an educational sangeeta from [employer]. Social History Living Situation History Housing: House Tobacco History Smoking Status: Never smoker Alcohol History Alcohol Intake: Never Domestic Abuse History Do You Feel Safe at Home: Yes Review of Systems Report any current symptoms Only answer those that you have currently: Past Medical History Past Medical History Have you ever been diagnosed with any of the following: Cardiology Problems Myocardial Infarction: No Cardiac Arrhythmia: No Atrial Fibrillation: No Angina: No Heart Murmur: No Coronary Artery Disease: No Atherosclerotic Heart Disease: No Peripheral Vascular Disease: No Hypercholesterolemia: No Aneurysm: No Congestive Heart Failure: No Congenital Heart Disease: No Valvular Heart Disease: No Rheumatic Fever: No Cardiomyopathy: No Edema: No Pericarditis: No Cellulitis: No Deep Vein Thrombosis: No Hypertension: Yes Varicose Veins: No Respiratory Problems Chronic Obstructive Pulmonary Disease (COPD): No Stomache/Intestinal Problems Cirrhosis: No Pancreatitis: No Celiac Disease: No Gall Bladder Disease: No Gastrointestinal Bleed: No Esophageal Varices: No Gross's Esophagus: No Colitis: No Ulcerative Colitis: No Diverticulitis: No Diverticulosis: No Ulcer: No Irritable Bowel: No Crohn's Disease: No Obstructive Bowel: No Hiatal Hernia: No Hemorrhoids: No Gastroesophageal Reflux Disease: No Obesity: Yes Genital/Urinary Problems Renal Disease: No Kidney Stones: No Polycystic Kidney Disease: No Neurogenic Bladder: No Inguinal Hernia: No Dialysis: No Head,Eye,Nose,Throat Problems Cataracts: No Glaucoma: No Blind: No Retinal Detachment: No Macular Degeneration: No Chronic Ear Infections: No Deafness: No Eye Prosthesis: No Endocrine Problems Diabetes Mellitus Type 1: No Diabetes Mellitus Type 2: No Hypoglycemia: No Wycombe's Syndrome: No Lamar's Disease: No Hyperthyroidism: No Hypothyroidism: No Parathyroid Disease: No Pituitary Disease: No Systemic Lupus Erythematosus: No Syndrome of Inappropriate Antidiuretic Hormone: No Adrenal Disease: No Graves' Disease: No Blood Problems Anemia: No Leukemia: No Hemophilia: No Thalassemia: No Sickle Cell Disease: No Clotting Problems: No Other Problems Autoimmune Disease: No Anesthesia Reactions: No Organ Transplant: No MRSA: No Clostridium Difficile: No Cancer: No Surgical History Pacemaker: No History of Present Illness HPI Narrative HPI:A 49-year-old female patient with past medical history of poorly controlled hypertension, prediabetes, morbid obesity, hyperlipidemia, questionable psoriasis, CKD, presented to the clinic after she was recently discharged from the hospital when she was admitted due to emergency hypertension, ANGEL LUIS on CKD. 05/13/2025, patient came to follow-up after discharge. She reported significant improvement of her symptoms. She reported that she has been taking her medications as prescribed and her blood pressure under well-controlled.. When she was discharged she was instructed to repeat her CMP to monitor her potassium level and also serum creatinine. Upon discharge it was noticed that her serum potassium was 5.2 and her serum creatinine is 2.9. Today she also reported that she has pain bilaterally on her thigh worsening whenever she walks. She mentions that the pain also sometimes can be associated with tingling on the lateral side and the front side of her thighs. She denied any claudication, skin color changes, or coldness. She also reported that she has some scaly skin rash on her extensor surfaces and also on the back of her ear. When she was at the hospital she was informed that could be psoriasis. She reported that she has been under a lot of stress recently as she has from her and she had to move back to live with her parents Home medications:Hydralazine 25 mg 3 times daily, metoprolol 25 mg daily, atorvastatin 40 mg nightly, to the office as a follow-up to check on the results of her blood work. Her serum creatinine continued to be at 2.7, potassium of 5.2. Regarding her thigh pain that we believe it was meralgia paresthetica she reported 90% improvement after she started to wear loose clothes. 05/20/2025. Patient came Objective/Exam Narrative Physical exam: GEN: AOx3, obese, able to speak full sentences HEENT: NC/AC, PERRLA, oral mucosa moist, neck supple CVS: RRR, S1-S2 present, no murmurs appreciated RESP: CTAB GI: soft,non distended, non tender, NBS MSK: able to move all 4 limbs, no lower extremity edema SKIN: Silver scaly lesions on the extensor surface of the elbow, diameter of 2 cm circular in shape, no excoriation, similar lesion in the back of her ear. ARTIST AGENT: Flat mood, CN II-XII and Sensation grossly intact. Assessment & Plan Diagnosis / Problem List (1) Psoriasis: Status: Acute Assessment & Plan: Silver scaly lesions on the extensor surfaces of the elbow, she also has on the scalp and behind her ears. Plan: ? Referral to valance cutter (2) Exertional dyspnea: Status: Acute Assessment & Plan: Patient reported that she has exertional dyspnea, she denied any orthopnea, palpitation, chest pain. When she was admitted to the hospital she had some chest pain however cardiology was consulted and he recommended that the patient does not need cardiac workup as the pain was reproducible. However given the patient's symptoms her risk factor including hypertension, prediabetes, CKD, obesity will refer the patient to a drywall boardhanger Plan: Referral to drywall boardhanger for possible echo and stress test. Patient noticed to have morbid obesity recommend lifestyle modification and weight loss medications as below (3) Morbid obesity with BMI of 40.0-44.9, adult: Status: Acute Assessment & Plan: Patient was noticed to have morbid obesity, she has also hypertension, prediabetes, hyperlipidemia, patient reported that she had made trial to weight loss over the her stressful lifestyle she feels. Plan: ? Continue to avoid excessive caloric intake and daily balanced diet as instructed ? Zepbound injections subcutaneous 2.5 mg weekly will start with the lowest dose and uptitrate every month ? Follow-up after 3 months with A1c ? Keep weight track every week ? Encouraged daily walk at least 30 minutes a day. Orders: Referrals Dermatology L40.9 - Psoriasis, unspecified Cardiology R06.09 - Other forms of dyspnea Additional Assessment Attending note: I, Jhonny Lennon MD, attest that I was physically present for the metzger portions of the service and evaluated the patient with the resident and I reviewed and discussed the case with the resident and agree with the resident's findings and plans of care as documented above. Jhonny Lennon MD Physician Billing Established Patient Established Patient: E/M Level 3-CPT 76585 Office Procedures [facility] Level of Care Nursing/Assessment Patient Status: Established Patient Nursing Assessment/Reassessment: Medication Reconciliation, Update PMH in EMR and Vital Signs Coordination of Care: Complex Care and Chronic Disease 1-5, Education Complex Pt/Fam, Results/Orders obtained and Staff clarify orders Established Patient Charge Established Patient Point Assignment: 90 Established Patient Point Charge: EP Level 3 (80-115)
== END 2025-05-20 15:59 | disposition home or self-care (01) ==
LOC: HODAHC 15:12
PROVIDERS: Supervising Provider Internal Medicine; Visit Provider Student in an Organized Health Care Education/Training Program
DX: L40.9 Psoriasis, unspecified (principal); E66.01 Morbid (severe) obesity due to excess calories; Z68.41 Body mass index [BMI] 40.0-44.9, adult; R06.09 Other forms of dyspnea; I10 Essential (primary) hypertension; E78.5 Hyperlipidemia, unspecified; R73.03 Prediabetes
CPT/HCPCS: 99213; G0463

== ENCOUNTER 2025-06-30 13:39 | Outpatient (AMB) | payer MEDICAID, SELFPAY ==
[2025-06-30 14:09] VITALS: BP 167/89; PULSE 79; RESP 18; TEMP 36.4; O2SAT 96; BMI 40.9
--- NOTE | 2025-06-30 14:09 | PD.RESCLINIC ---
Vital Signs 06/30/25 14:09 Height 1.5 m Height Method Stated Weight 92.136 kg Weight Measurement Method Standing Scale BMI 40.9 BP 167/89 H Blood Pressure Source Automatic Cuff Blood Pressure Location Left Upper Arm Position Sitting Respiration 18 Pulse 79 Pulse Source Monitor Temp 97.5 F Temp Source Oral Pulse Oximetry (%) 96 Oxygen Delivery Method Room Air Allergies/Meds Allergies & Medications Allergies No Known Allergies Allergy (Verified 06/30/25 14:09) Medication Reconciliation blood pressure test kit-medium #1 ea 05/05/25 [Rx Confirmed 06/30/25] hydralazine 25 mg tablet 25 mg PO TID 1 month #90 tabs 05/13/25 [Rx Confirmed 06/30/25] metoprolol succinate 25 mg tablet,extended release 24 hr 25 mg PO QDAY 30 days #30 tabs 05/13/25 [Rx Confirmed 06/30/25] atorvastatin 40 mg tablet 40 mg PO QHS #30 tabs 05/20/25 [Rx Confirmed 06/30/25] tirzepatide 2.5 mg/0.5 mL subcutaneous pen injector (Mounjaro) 2.5 mg (0.5 mL) subcut QWEEK #2 mL 06/30/25 [Rx] MA Intake Visit Data Collection New Patient or Established: Established Patient (seen at [facility] within 3 years) Seen by Clinical Staff ONLY (RN/MA): No PCP or OBGYN visit in last 3 months: Yes Smoking Status Smoking Status: Never smoker Immunization / Flu Flu Vaccine in the Last 12 Months: No Flu Vaccine Exclusion Criteria: No Exclusion Criteria Past Medical History Past Medical History NEUROLOGIC: Negative Neurological Disorders CARDIAC: Positive Cardiac Disorders and Hypertension; Negative Myocardial Infarction, Cardiac Arrhythmia, Atrial Fibrillation, Angina, Heart Murmur, Coronary Artery Disease, Atherosclerotic Heart Disease, Peripheral Vascular Disease, Hypercholesterolemia, Aneurysm, Congestive Heart Failure, Congenital Heart Disease, Valvular Heart Disease, Rheumatic Fever, Cardiomyopathy, Edema, Pericarditis, Cellulitis, Deep Vein Thrombosis or Varicose Veins RESPIRATORY: Negative Chronic Obstructive Pulmonary Disease (COPD) GASTROINTESTINAL: Positive Obesity; Negative Gastrointestinal Disorders, Cirrhosis, Pancreatitis, Celiac Disease, Gall Bladder Disease, Gastrointestinal Bleed, Esophageal Varices, Gross's Esophagus, Colitis, Ulcerative Colitis, Diverticulitis, Diverticulosis, Ulcer, Irritable Bowel, Crohn's Disease, Obstructive Bowel, Hiatal Hernia, Hemorrhoids or Gastroesophageal Reflux Disease GENITOURINARY: Negative Genitourinary Disorders, Renal Disease, Kidney Stones, Polycystic Kidney Disease, Neurogenic Bladder, Inguinal Hernia or Dialysis ENT: Negative Cataracts, Glaucoma, Blind, Retinal Detachment, Macular Degeneration, Ear Infection, Deafness or Eye Prosthesis ENDOCRINE: Negative Endocrine Disorders, Diabetes Mellitus Type 1, Diabetes Mellitus Type 2, Hypoglycemia, Morgan's Syndrome, Edgardo's Disease, Hyperthyroidism, Hypothyroidism, Parathyroid Disease, Pituitary Disease, Systemic Lupus Erythematosus, Syndrome of Inappropriate Antidiuretic Hormone (SIADH), Adrenal Disease or Graves' Disease HEMATOLOGIC: Negative Blood Disorders, Anemia, Leukemia, Hemophilia, Thalassemia, Sickle Cell Disease or Clotting Problems OTHER HISTORY: Negative Autoimmune Disease, Anesthesia Reactions, Organ Transplant, MRSA, Clostridium Difficile or Cancer Family History FAMILY HISTORY: Positive Family Cardiac Disorders; Negative Family Psychiatric Problems, Family Respiratory Disorders, Family Gastrointestinal Problems, Family Cancer, Family Surgery or Family Anesthesia Reaction Surgical History SURGICAL: Negative Pacemaker or Organ Transplant Social History SMOKING STATUS: Smoking status: Never smoker ALCOHOL: Alcohol Intake: Never HOUSING: Housing: House LIVES WITH: Lives With: Family Patient Portal Questionaires PHQ-9 PHQ-2 Over the last 2 weeks, how often have you been bothered by any of the following problems? 1. Little interest or pleasure in doing things: not at all PHQ-9 8. Moving or speaking so slowly that other people could have noticed? - Or the opposite - being so fidgety or restless that you have been moving around a lot more than usual: not at all Source: Developed by Drs. Emil Monge, Adeola Cerna, Nilo Washington and colleagues, with an educational sangeeta from [employer]. Social History Living Situation History Housing: House Tobacco History Smoking Status: Never smoker Alcohol History Alcohol Intake: Never Review of Systems Report any current symptoms Only answer those that you have currently: Past Medical History Past Medical History Have you ever been diagnosed with any of the following: Cardiology Problems Myocardial Infarction: No Cardiac Arrhythmia: No Atrial Fibrillation: No Angina: No Heart Murmur: No Coronary Artery Disease: No Atherosclerotic Heart Disease: No Peripheral Vascular Disease: No Hypercholesterolemia: No Aneurysm: No Congestive Heart Failure: No Congenital Heart Disease: No Valvular Heart Disease: No Rheumatic Fever: No Cardiomyopathy: No Edema: No Pericarditis: No Cellulitis: No Deep Vein Thrombosis: No Hypertension: Yes Varicose Veins: No Respiratory Problems Chronic Obstructive Pulmonary Disease (COPD): No Stomache/Intestinal Problems Cirrhosis: No Pancreatitis: No Celiac Disease: No Gall Bladder Disease: No Gastrointestinal Bleed: No Esophageal Varices: No Gross's Esophagus: No Colitis: No Ulcerative Colitis: No Diverticulitis: No Diverticulosis: No Ulcer: No Irritable Bowel: No Crohn's Disease: No Obstructive Bowel: No Hiatal Hernia: No Hemorrhoids: No Gastroesophageal Reflux Disease: No Obesity: Yes Genital/Urinary Problems Renal Disease: No Kidney Stones: No Polycystic Kidney Disease: No Neurogenic Bladder: No Inguinal Hernia: No Dialysis: No Head,Eye,Nose,Throat Problems Cataracts: No Glaucoma: No Blind: No Retinal Detachment: No Macular Degeneration: No Chronic Ear Infections: No Deafness: No Eye Prosthesis: No Endocrine Problems Diabetes Mellitus Type 1: No Diabetes Mellitus Type 2: No Hypoglycemia: No [place]'s Syndrome: No Edgardo's Disease: No Hyperthyroidism: No Hypothyroidism: No Parathyroid Disease: No Pituitary Disease: No Systemic Lupus Erythematosus: No Syndrome of Inappropriate Antidiuretic Hormone: No Adrenal Disease: No Graves' Disease: No Blood Problems Anemia: No Leukemia: No Hemophilia: No Thalassemia: No Sickle Cell Disease: No Clotting Problems: No Other Problems Autoimmune Disease: No Anesthesia Reactions: No Organ Transplant: No MRSA: No Clostridium Difficile: No Cancer: No Surgical History Pacemaker: No History of Present Illness HPI Narrative 06/30/25: Patient presenting to clinic today to follow up with lab results. She was found to have CKD during a hospital admission few months ago. Cr at that time was around 2.8-3.0. Labs completed outpatient on 06/22/25 showed BUN 37, Cr 2.2, GFR 26, sodium 137, potassium 4.8, bicarb 19, calcium 9.1. She reports normal urine output, water intake about 40z/day, no dysuria or hesitency. Patient was updated on results. Nephrology referral is pending. She has been on tirzepatide 2.5mg weekly for one month. Endorses weight loss of 4lbs. Plan to refill medication. Vitals show high BP 167/89. Review of Systems Review of Systems Systems Reviewed: All systems reviewed, normal except as documented Assessment & Plan Diagnosis / Problem List (1) Morbid obesity with BMI of 40.0-44.9, adult: Status: Acute Assessment & Plan: Refill tirzepatide 2.5mg weekly for 2 months. Monitor daily weights. Increase to 5mg weekly after two months. (2) Hypertension: Status: Acute Assessment & Plan: Taking hydralazine 25mg TID and metoprolol 25mg daily. Continue current regimen. Nephrology consult is pending. Plan: BP control goal SBP <130/80 Weight loss, exercise, lifestyle modifications (3) CKD (chronic kidney disease): Status: Acute Assessment & Plan: CKD stage 4 She was found to have CKD during a hospital admission few months ago. Cr at that time was around 2.8-3.0. Labs completed outpatient on 06/22/25 showed BUN 37, Cr 2.2, GFR 26, sodium 137, potassium 4.8, bicarb 19, calcium 9.1. She reports normal urine output, water intake about 40z/day, no dysuria or hesitency. Patient was updated on results. Renal nuclear medicine scan showed Severely impaired bilateral renal function. Renal u/s showed Small kidneys with bilateral renal cortical thinning. Mild bilateral renal scar formation. Plan: -nephrology consult pending -PTH, vitamin D -nephrology to consider possible biopsy. Likely CKD in setting of hypertension. -BP control Office Procedures [facility] Level of Care Nursing/Assessment Patient Status: Established Patient Nursing Assessment/Reassessment: Medication Reconciliation, Update PMH in EMR and Vital Signs Coordination of Care: Complex Care and Chronic Disease 1-5, Education Complex Pt/Fam and Staff clarify orders Established Patient Charge Established Patient Point Assignment: 85 Established Patient Point Charge: EP Level 3 (80-115)
== END 2025-06-30 15:04 | disposition home or self-care (01) ==
LOC: HODAHC 13:39
PROVIDERS: PCP Student in an Organized Health Care Education/Training Program; Referring Provider Student in an Organized Health Care Education/Training Program; Supervising Provider Internal Medicine
DX: E66.01 Morbid (severe) obesity due to excess calories (principal); Z68.41 Body mass index [BMI] 40.0-44.9, adult; I12.9 Hypertensive chronic kidney disease with stage 1 through stage 4 chronic kidney disease, or unspecified chronic kidney disease; N18.4 Chronic kidney disease, stage 4 (severe)
CPT/HCPCS: 99213; G0463